=== PATIENT | male | born 1945 | race Caucasian/White ===

== ENCOUNTER → 2016-11-06 | Outpatient (CLI) | payer BC ==
[~2016-11-06] MED LIST: ALLO300T2 PO; ASPI81TA21 PO; ATEN-175 PO; ATOR-24 PO; CHOL2000 PO; CHONCAP PO; CLC6 PO; CLOP1TAB15 PO; CLTP PO; CYCL10TA6 PO; DIAZ2TAB PO; DICL50TA3 PO; DICY10CA12 PO; FERR1TAB24 PO; FINA5TAB PO; GLC500 PO; GLUC1TAB22 PO; GLUCTAB7 PO; METHPOW PO; MULT-506 PO; NAPR-1168 PO; NTRGSL/4 UT; NXM/40 PO; OXYC1TAB3 PO; POTA10CA28 PO; [UNRECOGNIZED DRUG - CODE] PO
[2016-11-06 10:06] LABS: CHOLESTEROL/HDL RATIO 3.1
== END | disposition home or self-care (01) ==
LOC: C.LAB 07:37
PROVIDERS: ATTEND Internal Medicine Cardiovascular Disease
DX: E78.00 Pure hypercholesterolemia, unspecified (principal)

== ENCOUNTER → 2017-01-23 | Outpatient (CLI) | payer BC ==
[~2017-01-23] MED LIST changes: -OXYC1TAB3 PO
[2017-01-23 10:00] LABS: BASO % 0.8 %; BASO ABS # 0.05 K/uL (0-0.2); COMPLETE YES; EOS % 2.9 %; HEMATOCRIT 36.1 % (42-52); IG% 0.2 %; LYMPH ABS # 2.51 K/uL (1.2-3.4); MEAN CORPUSCULAR HEMOGLOBIN 32.2 pg (25-34); MEAN CORPUSCULAR HGB CONC 33.5 g/dl (32-36); MEAN PLATELET VOLUME 10.2 fL (7.4-10.4); MONO % 6.9 %; NEUT % 49.2 %; PLATELET COUNT 210 K/uL (130-400); RED BLOOD COUNT 3.76 M/uL (4.7-6.1); WHITE BLOOD COUNT 6.27 K/uL (4.8-10.8)
[2017-01-23 10:08] LABS: CALCIUM 9.5 mg/dl (8.5-10.1)
[2017-01-23 10:09] LABS: ALT/SGPT 41 U/L (12-78); BLOOD UREA NITROGEN 17 mg/dl (7-18); BUN/CREATININE RATIO 18.7 (10-20); CARBON DIOXIDE 27 mmol/L (21-32); CHLORIDE 108 mmol/L (98-107); CHOLESTEROL 127 mg/dl (0-200); CREATININE 0.91 mg/dl (0.60-1.40); GLUCOSE 111 mg/dl (70-99); POTASSIUM 3.9 mmol/L (3.5-5.1); SODIUM 144 mmol/L (136-145); TRIGLYCERIDES 69 mg/dl (0-150); URIC ACID 4.4 mg/dl (2.6-7.2); VERY LOW DENSITY LIPOPROT CALC 14 mg/dl
[2017-01-23 10:16] LABS: ALB/GLOB RATIO 1.2 (0.9-2); ALKALINE PHOSPHATASE 62 U/L (45-117); AST/SGOT 24 U/L (15-37); CHOLESTEROL/HDL RATIO 2.4; HDL CHOLESTEROL 53 mg/dl; LDL CHOLESTEROL CALCULATED 60 mg/dl; PHOSPHORUS 2.6 mg/dl (2.5-4.9)
[2017-01-23 11:20] LABS: ESTIMATED AVERAGE GLUCOSE 134 mg/dl; HA1C FLAG Normal (Normal)
[2017-01-26 11:29] LABS: C-REACTIVE PROT HIGHSEN 0.6 MG/L
--- NOTE | 2017-01-29 08:44 | CODING QUERY MEDICAL NECESSITY ---
CQSUPPORTING DIAGNOSIS NEEDED A supporting diagnosis is required for the test/procedure performed on this patient in order for us to be reimbursed by the patient's insurance. Please provide a supporting diagnosis for the following test/procedure listed below next to the test name along with your signature. *If there is no additional diagnosis for this patient that would support the following test/procedure please document that below next to the test/procedure. Test(s)/Procedure(s) that require a supporting diagnosis: DOS 01/23/17 VITAMIN B12 VITAMIN D C-REACTIVE PROTEIN HIGH SENSITIVITY Provider Signature: Date: Thank you Viviana Mcknight Health Information Management Once completed, please kindly fax back to [phone] For questions please call [phone]
== END | disposition home or self-care (01) ==
LOC: C.LAB 06:53
PROVIDERS: ATTEND Family Medicine
DX: E11.9 Type 2 diabetes mellitus without complications (principal); D51.9 Vitamin B12 deficiency anemia, unspecified; E55.9 Vitamin D deficiency, unspecified; E78.2 Mixed hyperlipidemia

== ENCOUNTER → 2017-05-15 | Outpatient (CLI) | payer BC ==
[2017-05-15 09:58] LABS: CHOLESTEROL/HDL RATIO 2.7
== END | disposition home or self-care (01) ==
LOC: C.LAB 08:11
PROVIDERS: ATTEND Internal Medicine Cardiovascular Disease
DX: I25.10 Atherosclerotic heart disease of native coronary artery without angina pectoris (principal)

== ENCOUNTER 2017-09-01 05:26 | Inpatient (IN) | payer BC, OTHER ==
[2017-08-03 12:21] VITALS: BMI 33.0
--- NOTE | 2017-08-03 12:54 | PAT Medication Instructions ---
Service Date Aug 03, 2017. Current Home Medication List Allopurinol (Zyloprim), 300 MG PO NOON Aspirin Enteric Coated (Ecotrin Or Generic), 81 MG PO NOON Atenolol (Tenormin), 100 MG PO DAILY AT LUNCH Atorvastatin (Lipitor), 40 MG PO HS Calcium Carbonate-Vitamin D (Calcium + D), 1 TAB PO NOON Cholecalciferol (Vitamin D3), 2,000 INTER.UNIT PO DAILY AT LUNCH Clopidogrel (Plavix), 75 MG PO QAM Colchicine (Colcrys), 1 TAB PO DAILY PRN for GOUT Cyclobenzaprine Hcl (Flexeril), 10 MG PO UD PRN for spasms Diazepam (Valium), 2 MG PO QID PRN for dizziness/vertigo Diclofenac (Voltaren), 50 MG PO UD PRN for Pain Dicyclomine Hcl (Dicyclomine Hcl), 1 CAP PO TID PRN for SPASTIC COLON Esomeprazole Magnesium (Nexium), 40 MG PO QPM Ferrous Sulfate (Kp Ferrous Sulfate), 1 TAB PO 3XWEEK Finasteride (Proscar), 5 MG PO QAM Vpgaajlenit-Vzqfryzotod-Kox C- (Glucosamine Chondroitin), 1 TAB PO QAM Metformin Hcl (Glucophage), 500 MG PO NOON/PM Methylcellulose (Laxative) (Citrucel Fiber Laxative), 1 DOSE PO QAM Multivitamin (Multivitamin), 1 TAB PO QAM Naproxen Ds (Naprosyn Ds), 550 MG PO DAILY PRN for Pain Nitroglycerin (Nitrostat), 0.4 MG UT PRN Potassium Chloride (Micro-K Ext Rel), 10 MEQ PO QAM Valsartan/Hctz (Diovan Hct 160MG/25MG), 1 TAB PO QAM Medication Instructions For Your Scheduled Surgery - Continue as directed: Nitroglycerin (Nitrostat), 0.4 MG UT PRN - Hold the following medications 2 weeks prior to surgery: Ctkirnpldwc-Kxjlqagxkia-Rav C- (Glucosamine Chondroitin), 1 TAB PO QAM - Hold the following medications per Cardiology instructions: Clopidogrel (Plavix), 75 MG PO QAM - Hold the following medications 48 hours prior to surgery: Metformin Hcl (Glucophage), 500 MG PO NOON/PM - Hold the following medications the morning of surgery: Potassium Chloride (Micro-K Ext Rel), 10 MEQ PO QAM Valsartan/Hctz (Diovan Hct 160MG/25MG), 1 TAB PO QAM Cyclobenzaprine Hcl (Flexeril), 10 MG PO UD PRN for spasms Multivitamin (Multivitamin), 1 TAB PO QAM Methylcellulose (Laxative) (Citrucel Fiber Laxative), 1 DOSE PO QAM Calcium Carbonate-Vitamin D (Calcium + D), 1 TAB PO NOON Cholecalciferol (Vitamin D3), 2,000 INTER.UNIT PO DAILY AT LUNCH Ferrous Sulfate (Kp Ferrous Sulfate), 1 TAB PO 3XWEEK Diclofenac (Voltaren), 50 MG PO UD PRN for Pain (otherwise okay to continue per surgeon) Naproxen Ds (Naprosyn Ds), 550 MG PO DAILY PRN for Pain (otherwise okay to continue per surgeon) Dicyclomine Hcl (Dicyclomine Hcl), 1 CAP PO TID PRN for SPASTIC COLON - Take the following medications the morning of surgery with a sip of water OTHERWISE NOTHING TO EAT OR DRINK AFTER MIDNIGHT: Colchicine (Colcrys), 1 TAB PO DAILY PRN for GOUT Finasteride (Proscar), 5 MG PO QAM Diazepam (Valium), 2 MG PO QID PRN for dizziness/vertigo Aspirin Enteric Coated (Ecotrin Or Generic), 81 MG PO NOON (time permitting) Atenolol (Tenormin), 100 MG PO DAILY AT LUNCH (time permitting) Allopurinol (Zyloprim), 300 MG PO NOON - Take the following medications as scheduled the night before surgery: Atorvastatin (Lipitor), 40 MG PO HS Diazepam (Valium), 2 MG PO QID PRN for dizziness/vertigo Cyclobenzaprine Hcl (Flexeril), 10 MG PO UD PRN for spasms Esomeprazole Magnesium (Nexium), 40 MG PO QPM Dicyclomine Hcl (Dicyclomine Hcl), 1 CAP PO TID PRN for SPASTIC COLON If you have any questions please call us at [phone] or [phone] or [phone]
[2017-08-03 13:37] LABS: BASO % 0.6 %; BASO ABS # 0.04 K/uL (0-0.2); EOS % 2.3 %; EOS ABS # 0.15 K/uL (0-0.5); HEMATOCRIT 35.5 % (42-52); HEMOGLOBIN 12.2 g/dL (14.0-18.0); IG# 0.03 K/uL (0.00-0.02); LYMPH % 37.2 %; LYMPH ABS # 2.41 K/uL (1.2-3.4); MEAN CELL VOLUME 94.4 fL (80-100); MEAN CORPUSCULAR HEMOGLOBIN 32.4 pg (25-34); MEAN CORPUSCULAR HGB CONC 34.4 g/dl (32-36); MONO % 8.5 %; MONO ABS # 0.55 K/uL (0.11-0.59); NEUT % 50.9 %; NEUT ABS # 3.29 K/uL (1.4-6.5); PLATELET COUNT 199 K/uL (130-400); RED CELL DISTRIBUTION WIDTH SD 44.7 fL (36.4-46.3); WHITE BLOOD COUNT 6.47 K/uL (4.8-10.8)
--- NOTE | 2017-08-03 13:38 | DIAGNOSTIC IMAGING REPORT ---
CHEST 2 VIEWS ROUTINE CLINICAL HISTORY: 72 years-old Male presenting with preoperative assessment. TECHNIQUE: PA and lateral views of the chest were obtained. COMPARISON: 03/20/2016. FINDINGS: Atherosclerosis of aortic arch. Coronary artery calcification versus coronary stents noted. Cardiac silhouette normal in size. Lungs and pleural spaces clear. Degenerative changes of the thoracic spine. Upper abdomen normal. IMPRESSION: 1. No acute cardiopulmonary disease. Electronically signed by: Reese Sanford M.D. 08/03/2017 1:37 PM Dictated Date/Time: 08/03/2017 1:36 PM
[2017-08-03 13:49] LABS: PTT PATIENT 24.3 SECONDS (21.0-31.0)
[2017-08-03 14:08] LABS: HEMOGLOBIN A1C 7.1 % (4.5-5.6)
[2017-08-03 14:22] LABS: ALBUMIN 4.1 gm/dl (3.4-5.0); CALCIUM 9.4 mg/dl (8.5-10.1); CREATININE 1.03 mg/dl (0.60-1.40); POTASSIUM 4.2 mmol/L (3.5-5.1)
--- NOTE | 2017-08-04 09:08 | HISTORY & PHYSICAL EXAMINATION ---
DATE OF ADMISSION: 09/01/2017 CHIEF COMPLAINT: Right knee pain. HISTORY OF PRESENT ILLNESS: Mr. Capellan is a 72-year-old male with a multiple year history of right knee pain. He rates his pain an 03/26. He has pain with his daily activities. He has limited standing and walking tolerance. Pain is worse with weightbearing. The patient has tried bracing, injections, topicals and NSAIDs over the years without relief. He has failed conservative treatment and is scheduled for right knee replacement. PAST MEDICAL HISTORY: Heart disease with stent placement in 2003, diabetes with an A1c of 6.1, hypertension, sleep apnea, gout, acid reflux. He denies history of DVT. PAST SURGICAL HISTORY: Bilateral knee arthroscopy, right rotator cuff repair. SOCIAL HISTORY: The patient drinks 6 drinks per week on average. He denies tobacco use. He lives in a 2-story home. He is and retired. FAMILY HISTORY: Negative for DVT. MEDICATIONS: Lipitor 40 mg daily, potassium chloride 10 mEq 2 capsules daily, Diovan HCTZ 160/25 mg, Plavix 75 mg, atenolol 100 mg, nitroglycerin 0.4 mg p.r.n., metformin 500 mg b.i.d., Nexium 40 mg daily, Citrucel, glucosamine chondroitin, aspirin 81 mg, finasteride 5 mg daily, vitamin D3 2000 units daily, calcium 600 plus D, allopurinol 300 mg, naproxen sodium 550 mg b.i.d., ____ 0.6 mg daily, Diclofenac 50 mg b.i.d. p.r.n., cyclobenzaprine 10 mg 3 times daily p.r.n., dicyclomine 10 mg 3 times daily p.r.n., Mobic 15 mg p.r.n. ALLERGIES: None. REVIEW OF SYSTEMS: See HPI. Ten other systems reviewed, all negative. PHYSICAL EXAMINATION: VITAL SIGNS: Height 5 foot 11, weight 225 pounds. GENERAL: This is a well-developed, well-nourished male who is alert and oriented x3. Mood and affect are appropriate. HEAD, EYES, EARS, NOSE, AND THROAT: Normocephalic, atraumatic. Mucous membranes are moist and intact. NECK: Supple without lymphadenopathy. HEART: Regular rate and rhythm without murmurs, rubs or gallops. LUNGS: Clear to auscultation without wheezes or rhonchi. ABDOMEN: Soft and nontender. Bowel sounds are equal and active. EXTREMITIES: No ecchymosis, redness or warmth. He has moderate effusion. Neutral alignment. Range of motion is from 3-115 degrees with +1 laxity. He is neurovascularly intact with +5/5 strength. X-RAY EXAMINATION: AP and lateral views show joint space narrowing and osteophyte formation, especially medial compartment. He likely has a history of possible mid shaft tibial fracture. IMPRESSION: Degenerative joint disease, right knee. PLAN: The patient will be admitted for a right total knee arthroplasty with Dr. Ivy. We will plan on aspirin for DVT prophylaxis along with resuming his Plavix. He will use [facility] for home physical therapy upon discharge.
[2017-09-01] VITALS (8 sets, daily range): BP systolic 112–147; BP diastolic 61–87; PULSE 57–68; TEMP 36.4–37.2; O2SAT 95–98; Ht 180.3 cm; Wt 107.4 kg
[~2017-09-01] VITALS: Ht 180.3 cm; Wt 107.4 kg
[~2017-09-01 05:26] MED LIST changes: +CALC600T9 PO; -CHONCAP PO; -CLTP PO; +FERR1TAB13 PO; -FERR1TAB24 PO; +GLC/500 PO; -GLC500 PO; -GLUC1TAB22 PO; -METHPOW PO; +METHPOW7 PO; +VALS160T60 PO; -[UNRECOGNIZED DRUG - CODE] PO
[2017-09-01] MEDS ORDERED: LACTATED RINGER'S 1000ML 500 ML IV SCH (06:00)
[2017-09-01] MEDS ORDERED: DEXAMETHASONE 4 MG TAB PO SCH (06:00)
[2017-09-01] MEDS ORDERED: ACETAMINOPHEN 500 MG TAB PO SCH (06:00)
[2017-09-01] MEDS ORDERED: CEFAZOLIN 2000MG IV PUSH 10 ML IV SCH (06:00)
[2017-09-01] MEDS ORDERED: LACTATED RINGER'S 1000ML IV SCH (06:00)
[2017-09-01] MEDS ORDERED: CeleBREX 200 MG CAP PO SCH (06:00)
[2017-09-01] MEDS ORDERED: LACTATED RINGER'S 1000ML 1,000 ML IV SCH (06:00)
[2017-09-01] MEDS ORDERED: GABAPENTIN 300 MG CAP PO SCH (06:00)
[2017-09-01] MEDS ORDERED: METOCLOPRAMIDE HCL 10 MG TAB PO SCH (06:00)
[2017-09-01] MEDS ORDERED: FAMOTIDINE 20 MG TAB PO SCH (06:00)
[2017-09-01] MEDS ORDERED: ROPIVACAINE 5MG/ML 30 ML 150 MG, BUPIVACAINE 0.5% MPF INJ 30 ML, EpINEphrine HCL INJ 0.... INFIL SCH ×8 (06:00)
[2017-09-01] MEDS ORDERED: BUPIVACAINE 0.25% 30 ML VIAL ONE (06:20)
[2017-09-01] MEDS ORDERED: BUPIVACAINE 0.5 % 5 MG/1 ML PF 10ML VIAL ONE (06:20)
[2017-09-01] MEDS ORDERED: MIDAZOLAM HCL 1 MG/ML 2ML VIAL ONE ×3 (06:48→07:30)
[2017-09-01] MEDS ORDERED: FENTANYL CITRATE INJ 50 MCG/1 ML 2 ML VIAL ONE (06:49)
[2017-09-01] MEDS ORDERED: PROPOFOL IV EMULSION 10 MG/ML 20 ML VIAL IV ONE (06:50)
[2017-09-01] MEDS ORDERED: ONDANSETRON INJ 2 MG/ML 2 ML VIAL ONE (06:50)
[2017-09-01] MEDS ORDERED: LIDOCAINE HCL 2% 2 ML VIAL (20MG/ML) ONE (06:50)
[2017-09-01] MEDS ORDERED: POVIDONE-IODINE OP SOLN 30 ML BTL ONE (06:55)
[2017-09-01] MEDS ORDERED: BACITRACIN 50000 UNIT VIAL ONE (06:55)
[2017-09-01] MEDS ORDERED: ORTHO JOINT ANESTHETIC ONE (06:55)
--- NOTE | 2017-09-01 07:14 | History & Physical Bridge Note ---
H&P Re-Evaluation Bridge Note: I have examined the patient, reviewed the History & Physical and in the interval since the performance of the History & Physical I have noted the following changes of clinical significance: No changes noted
[2017-09-01] MEDS ORDERED: KETOROLAC TROMETHAMINE 30 MG/ML VIAL IV. PRN (07:45)
[2017-09-01] MEDS ORDERED: ONDANSETRON INJ 2 MG/ML 2 ML VIAL IV PRN ×2 (07:45→09:15)
[2017-09-01] MEDS ORDERED: ATROPINE SULFATE 0.1 MG/ML 5ML SYR IV PRN (07:45)
[2017-09-01] MEDS ORDERED: HYDROmorphone INJ 2 MG/ML SYR/VIAL IV PRN (07:45)
[2017-09-01] MEDS ORDERED: PHENYLEPHRINE 100MCG/ML 5ML SYR IV PRN (07:45)
[2017-09-01] MEDS ORDERED: EpHEDrine SULFATE INJ 50 MG/ML AMP IV PRN (07:45)
--- NOTE | 2017-09-01 08:34 | [facility] Operative Report ---
Operative Report Operative Date Sep 01, 2017. Pre-Operative Diagnosis Right Knee Degenerative Joint Disease Post-Operative Diagnosis Right Knee Degenerative Joint Disease Procedure(s) Performed Right Total Knee Arthroplasty, Cemented size 6 femur 5 tibia 11 Deepti 35 oval patella journey to patient-matched total knee arthroplasty Surgeon Dr. Ivy Dinkey Operator Surgeon(s) Richard Mtz PA-C Estimated Blood Loss 5 mL Findings Patient presents with a planes ongoing pain with varus alignment subchondral cystic formations also osteophytes marginal osteophytes sclerosis failed attempts at conservative management including physical therapy anti- inflammatories relative rest activity modification injections Specimens A: Right Knee Bone and Tissue Complication(s) None Disposition Recovery Room / PACU Indications Patient presents of 4 total knee arthroplasty excision milligrams subchondral sclerosis cystic changes marginal osteophytes varus alignment fsqi-[id number] changes Nourse wants to conservative therapy including injections anti- inflammatories relative rest activity modification viscus of rotations presents for total knee arthroplasty Description of Procedure After proper prepping and draping of the Right lower extremity anterior midline incision was made over the region of the extensor extensor mechanism after meticulous hemostasis was obtained and maintained in subcutaneous tissues a medial parapatellar incision was made The patella was subluxed lateralward the medial lateral gutter were cleaned from any hypertrophic synovitis and scar tissue of the distal femoral block was placed and the distal femoral osteotomy cut was made subsequently the chamfers anterior and posterior osteotomy cuts were made utilizing the 4-in-1 block the tibia was subsequently subluxed anteriorward medial and ateral meniscal remnants were excised in their entirety remnants of the anterior and posterior cruciate ligaments were excised in their entirety excellent exposure of the proximal tibia was obtained the tibial osteotomy guide was placed on the proximal tibial osteotomy cut was made once again the knee was irrigated with copious amounts of sterile saline solution the patella was subsequently everted lateralward thickened scar tissue around the patella was removed the patella was subsequently cut utilizing a freehand technique and was drilled prepared for final preparation and placement of patella socially flexion-extension gaps were checked and the equal and symmetric trials were placed to the appropriate femoral and tibial trials with poly-spacer being placed for equal flexion and extension gaps and full range of motion including extension to 0 and flexion to 140 the trial components after having been taken to recovery range of motion was subsequently removed meticulous hemostasis was obtained and maintained subsequently a knee block injection of joint cocktail including ropivacaine 0.5% 150 mg. Bupivacaine 0.5 % epinephrine 1-200,030 mL's toradol 30 mg dexamethasone 4 mg ketamine 10 mg clonidine 100 micrograms normal saline solution 30 mg was infiltrated into the soft tissues of the posterior knee medial lateral gutters and periosteal synovium special attention was paid to protect neurovascular structures at all times subsequently trial components having been removed the knee was irrigated with sterile saline solution. debris was removed the proximal tibia was subsequently prepared and was made ready for the placement of the tibial component tibial component was also cemented and tamped into position the femoral component was subsequently placed and cemented in the position the patellar component was subsequently cemented in position because hemostasis once again obtained and maintained wound having been thoroughly irrigated with debridement and debridement lavage was performed as well as a medial parapatellar incision closed with #1 Vicryl in interrupted fashion subcutaneous was closed with #2 Vicryl skin was closed with skin clips. PA-C was necessary for prepping and drapping as well as wound closure of deep fascia Sub cutaneous tissue and skin and was necessary for the case. A sterile compressive dressing was placed patient was taken to recovery in stable condition of report dictated by Biju I attest to the content of the Intraoperative Record and any orders documented therein. Any exceptions are noted below. I attest to the content of the Intraoperative Record and any orders documented therein. Any exceptions are noted below.
[2017-09-01] MEDS ORDERED: ALUMINUM/MAGNESIUM/SIMETH (MAALOX MAX) 30 ML UDC PO PRN (09:15)
[2017-09-01] MEDS ORDERED: CYCLOBENZAPRINE HCL 10 MG TAB PO PRN (09:15)
[2017-09-01] MEDS ORDERED: ZOLPIDEM TARTRATE 5 MG TAB PO PRN (09:15)
[2017-09-01] MEDS ORDERED: COLCHICINE 0.6 MG TAB PO PRN (09:15)
[2017-09-01] MEDS ORDERED: DICYCLOMINE HCL 10 MG CAP PO PRN (09:15)
[2017-09-01] MEDS ORDERED: OXYCODONE HCL IR 5 MG TAB (IMMEDIATE RELEASE) PO PRN (09:15)
[2017-09-01] MEDS ORDERED: BISACODYL 10 MG SUPP PR PRN (09:15)
[2017-09-01] MEDS ORDERED: DIAZEPAM 2MG TAB PO PRN (09:15)
[2017-09-01] MEDS ORDERED: MAGNESIUM HYDROXIDE SUSP 30 ML UDC PO PRN (09:15)
[2017-09-01] MEDS ORDERED: SOD PHOSPHATE/SOD BIPHOSPHATE ENEMA 132 ML BTL PR PRN (09:15)
[2017-09-01] MEDS ORDERED: CEFAZOLIN IV 2,000 MG in DEXTROSE 5% 50ML 50 ML IV SCH (09:15)
[2017-09-01] MEDS ORDERED: NITROGLYCERIN 0.4 MG SL PER TAB CHARGE UT PRN (09:15)
--- NOTE | 2017-09-01 09:29 | DIAGNOSTIC IMAGING REPORT ---
R KNEE 1 OR 2 VIEWS ROUTINE CLINICAL HISTORY: Postoperative evaluation COMPARISON: Right knee radiographs June 30, 2016. FINDINGS: Alignment of the total right knee arthroplasty is anatomic. The fracture or unexpected radiopaque foreign body. Surgical drains are in place. IMPRESSION: Expected findings following total right knee arthroplasty. Electronically signed by: Jose Carlos Arboleda M.D. 09/01/2017 9:28 AM Dictated Date/Time: 09/01/2017 9:27 AM
--- NOTE | 2017-09-01 09:46 | Pharmacy Progress Note ---
Glycemic Control Intl Consult Date of Service Sep 01, 2017. Scope Glycemic Pharmacist consulted on 09/01/17 for glycemic control and to write orders per [facility] inpatient glycemic control protocol Objective Weight (Kilograms): 107.40 Accuchecks BSG (last 24hrs): Test 09/01/17 05:49 09/01/17 09:10 Bedside Glucose 124 mg/dl (70-99) 140 mg/dl (70-99) HbA1c Item Value Date Time Hemoglobin A1c 7.1 % H 08/03/17 1300 Estimated Average Glucose 157 mg/dl 08/03/17 1300 Recent Pertinent Medications Outpatient Anti-diabetic Regimen: * metformin 500 mg PO BIDM Risk Factors for Insulin Resistance: * Steroids * Recent Surgery * Diet Assessment & Plan ASSESSMENT: * 72 yo T2 diabetic M, s/p R knee surgery - POD #0 * A1c 7.1% indicative of good glycemic control based on age/comorbidities * Pt is maintained on metformin alone as an outpatient * Oral agents are not recommended for inpatient use d/t drug interactions, changing PO intake, and difficulty titrating for acute hyper/hypoglycemia. ADA recommends re-initiating outpatient oral agents 1-2 days prior to discharge if/ when appropriate if they were held on admission. * Will hold metformin for now and utilize SQ basal bolus insulin regimen which is the recommended regimen for inpatient glycemic control. * Will initiate weight based insulin dosing for insulin jennifer patient and titrate based on BSG trends. * Expect steroid-induced hyperglycemic from preop dexamethasone X 1 so plan will be aggressive up front then loosened each day. PLAN FOR INPATIENT GLYCEMIC CONTROL: * Hold metformin * Basal insulin with LANTUS 30 units SQ X 1 - further dosing may be necessary tomorrow based on BSG trend * Correctional Insulin with NOVOLOG per scale ACHS + 00,04 X 24 hours post-op * Goal Range: Low 110 mg/dL - High 140 mg/dL * Correction Factor: 20 mg/dL/unit * Nutritional / Prandial insulin per carb ratio of 1 unit per 6 grams CHO consumed * Please note that the plan above was derived based on current level of insulin resistance and hospital stress. These recommendations are appropriate for inpatient admission only. Plan of care upon discharge will need to be reassessed to avoid potential outpatient hypo/hyperglycemia. Thank you.
--- NOTE | 2017-09-01 10:23 | Anesthesiology Progress Note ---
Anesthesia Post Op Note Date & Time Sep 01, 2017 at 10:23 Vital Signs Pain Intensity: 0 Vital Signs Past 12 Hours Date Time Temp Pulse Resp B/P (MAP) Pulse Ox O2 Delivery O2 Flow Rate FiO2 09/01/17 10:14 64 12 09/01/17 10:14 63 12 96 09/01/17 10:11 114/64 09/01/17 10:09 66 15 09/01/17 10:09 66 15 93 09/01/17 10:06 121/53 09/01/17 10:04 70 15 09/01/17 10:04 70 15 95 09/01/17 10:02 117/55 09/01/17 09:59 62 15 97 09/01/17 09:59 63 15 09/01/17 09:58 36.6 61 16 122/45 (67) 96 Nasal Cannula 2 09/01/17 09:56 122/45 09/01/17 09:54 64 17 09/01/17 09:54 64 17 97 09/01/17 09:53 62 14 96 09/01/17 09:53 62 14 09/01/17 09:51 120/61 09/01/17 09:48 63 21 09/01/17 09:48 64 21 96 09/01/17 09:46 113/64 09/01/17 09:43 63 15 09/01/17 09:43 62 15 95 09/01/17 09:42 63 14 09/01/17 09:42 64 14 95 09/01/17 09:41 120/66 09/01/17 09:37 66 12 09/01/17 09:37 65 12 93 09/01/17 09:36 120/67 09/01/17 09:32 64 16 09/01/17 09:32 64 16 95 09/01/17 09:31 114/62 09/01/17 09:27 64 14 09/01/17 09:27 65 14 95 09/01/17 09:26 96/57 09/01/17 09:22 61 14 09/01/17 09:22 61 14 95 09/01/17 09:21 101/54 09/01/17 09:20 62 17 09/01/17 09:20 63 17 94 09/01/17 09:16 110/54 09/01/17 09:15 66 15 94 09/01/17 09:15 67 15 09/01/17 09:11 104/58 09/01/17 09:10 65 14 09/01/17 09:10 65 14 95 09/01/17 09:06 111/53 09/01/17 09:05 36.2 69 15 111/53 (69) 93 Nasal Cannula 2 09/01/17 09:05 71 14 93 09/01/17 09:05 72 14 09/01/17 05:45 36.9 68 20 145/87 98 Room Air Notes Mental Status: alert / awake / arousable, participated in evaluation Pt Amnestic to Procedure: Yes Nausea / Vomiting: adequately controlled Pain: adequately controlled Airway Patency, RR, SpO2: stable & adequate BP & HR: stable & adequate Hydration State: stable & adequate Anesthetic Complications: no major complications apparent
[2017-09-01] MEDS ORDERED: PHARMACY GLYCEMIC MGMT CONSULT PRN (10:48)
[2017-09-01] MEDS ORDERED: GLUCAGON FOR INJ 1 MG VIAL SQ PRN (11:00)
[2017-09-01] MEDS ORDERED: DEXTROSE 50% 50 ML SYR IV PRN (11:00)
[2017-09-01] MEDS ORDERED: GLUCOSE 40% GEL 15 GM TUBE PO PRN (11:00)
[2017-09-01] MEDS ORDERED: GLUCOSE 10 TABS/TUBE PO PRN (11:00)
[2017-09-01] MEDS: SODIUM CHLORIDE 0.9% 1000ML 1,000 ML IV SCH ×2 (11:16→20:50)
[2017-09-01] MEDS ORDERED: LANTUS PER UNIT CHARGE SQ SCH (12:00)
[2017-09-01] MEDS: FERROUS GLUCONATE 324 MG TAB PO SCH ×2 (13:14→19:36)
[2017-09-01] MEDS: CALCIUM 600MG + VIT D 400 IU TAB PO SCH (13:14)
[2017-09-01] MEDS: ACETAMINOPHEN 500 MG TAB PO SCH ×2 (13:15→21:34)
[2017-09-01] MEDS: CHOLECALCIFEROL 1000 INTER.UNIT TAB PO SCH (13:15)
[2017-09-01] MEDS: INSULIN ASPART 100 UNITS/ML 3 ML PEN SC SCH ×3 (13:22→20:56)
[2017-09-01] MEDS ORDERED: GLC850 PO (15:07)
[2017-09-01] MEDS ORDERED: NRN100 PO (15:07)
[2017-09-01] MEDS ORDERED: HydrALAZINE HCL 20 MG/ML VIAL IV. PRN (15:15)
--- NOTE | 2017-09-01 15:21 | Medical Consult ---
Consultation Date of Consultation: Sep 01, 2017. Attending Physician: Momo Ivy D.O. Reason for Consultation: Medical management History of Present Illness This is a 72 y/o male with a history of CAD s/p stents x 2 (2003/2004), HTN, HLD , DM II, BPH, gout, and GERD who presents s/p right TKA with Dr. Ivy on 09/01 for medical management. The patient reports feeling well postoperatively. He states that he is still numb/tingly in his lower extremities, R>L, but that feeling is returning. He denies any pain currently. He is eating and passing gas without issue. He has not yet urinated or had a bowel movement postoperatively. The patient denies fevers, chills, sweats, chest pain, palpitations, claudication, cough, wheezing, shortness of breath, nausea, vomiting, abdominal pain, dysuria, hematuria, urinary retention, paralysis, weakness. Past Medical/Surgical History CAD s/p stents (first in 2003, second 6 months later in 2004) HTN HLD DM II BPH Gout GERD OA Family History Coronary artery disease MOTHER SISTER Lung cancer FATHER Myocardial infarction SISTER Social History Smoking Status: Former Smoker (quit in 1969) Smokeless Tobacco Use: No Alcohol Use: socially Drug Use: none Marital Status: Housing Status: lives with family ( and son) Occupation Status: retired Allergies Coded Allergies: No Known Allergies (Verified , 09/01/17) Current Inpatient Medications Current Inpatient Medications Medications (Trade) Dose Ordered Sig/Blanche Route Start Time Stop Time Status Last Admin Dose Admin Sodium Chloride 1,000 ml @ 100 mls/hr Q10H IV 09/01/17 11:30 09/02/17 11:29 09/01/17 11:16 100 MLS/HR Oxycodone HCl (Roxicodone Immediate Rel Tab) 1 TABLET FOR PAIN RATING... Q4H PRN PO 09/01/17 09:15 09/15/17 09:14 Acetaminophen (Tylenol Tab) 1,000 mg Q8 PO 09/01/17 14:00 10/01/17 13:59 09/01/17 13:15 1,000 MG Magnesium Hydroxide (Milk Of Magnesia Susp) 30 ml Q6H PRN PO 09/01/17 09:15 10/01/17 09:14 Bisacodyl (Dulcolax Supp) 10 mg DAILY PRN SD 09/01/17 09:15 10/01/17 09:14 Sodium Biphosphate/ Sodium Phosphate (Fleet Enema) 132 ml DAILY PRN SD 09/01/17 09:15 10/01/17 09:14 Senna (Senokot Tab) 17.2 mg HS PO 09/01/17 21:00 10/01/17 20:59 Docusate Sodium (coLACE CAP) 100 mg BID PO 09/01/17 21:00 10/01/17 20:59 Diphenhydramine HCl (Benadryl Cap) 25 mg Q8H PRN PO 09/01/17 09:15 10/01/17 09:14 Al Hydrox/Mg Hydrox/Simethicone (Maalox Max Susp) 15 ml Q4H PRN PO 09/01/17 09:15 10/01/17 09:14 Zolpidem Tartrate (Ambien Tab) 5 mg HSZ PRN PO 09/01/17 09:15 10/01/17 09:14 Multivitamins (Multivitamin Tab) 1 tab QAM PO 09/02/17 09:00 10/02/17 08:59 Ondansetron HCl (Zofran Inj) 4 mg Q6H PRN IV 09/01/17 09:15 10/01/17 09:14 Ferrous Gluconate (Ferrous Gluconate Tab) 324 mg TIDM PO 09/01/17 12:30 10/01/17 12:29 09/01/17 13:14 324 MG Pantoprazole Sodium (Protonix Tab) 40 mg QAM PO 09/02/17 09:00 10/02/17 08:59 Tramadol HCl (Ultram Tab) 1 tablet for pain rating... Q4H PRN PO 09/01/17 09:15 10/01/17 09:14 Aspirin (Ecotrin Tab) 81 mg DAILY PO 09/02/17 09:00 10/02/17 08:59 Atorvastatin Calcium (Lipitor Tab) 40 mg HS PO 09/01/17 21:00 10/01/17 20:59 Clopidogrel Bisulfate (plAVix TAB) 75 mg QAM PO 09/02/17 09:00 10/02/17 08:59 Colchicine (Colchicine Tab) 0.6 mg DAILY PRN PO 09/01/17 09:15 10/01/17 09:14 Cyclobenzaprine HCl (Flexeril Tab) 10 mg DAILY PRN PO 09/01/17 09:15 10/01/17 09:14 Diazepam (Valium Tab) 2 mg QID PRN PO 09/01/17 09:15 10/01/17 09:14 Dicyclomine HCl (Bentyl Cap) 10 mg TID PRN PO 09/01/17 09:15 10/01/17 09:14 Finasteride (Proscar Tab) 5 mg QAM PO 09/02/17 09:00 10/02/17 08:59 Nitroglycerin (Nitrostat Tab) 0.4 mg UD PRN UT 09/01/17 09:15 10/01/17 09:14 Potassium Chloride (Klor-Con M10) 10 meq QAM PO 09/02/17 09:00 10/02/17 08:59 Calcium/Vitamin D (Caltrate Plus Tab) 1 tab DAILY@1200 PO 09/01/17 12:00 10/01/17 11:59 09/01/17 13:14 1 TAB Cholecalciferol (Vitamin D Tab) 2,000 inter.unit DAILY@1200 PO 09/01/17 12:00 10/01/17 11:59 09/01/17 13:15 2,000 INTER.UNIT Miscellaneous Information (Consult Glycemic Management Pharmacy) 1 ea UD PRN N/A 09/01/17 10:48 10/01/17 10:47 Insulin Aspart (novoLOG ASPART) SLIDING SCALE ACHS SC 09/01/17 12:00 10/01/17 11:59 09/01/17 13:22 5 UNITS Glucose (Glucose 40% Gel) 15-30 GRAMS 15 GRAMS... UD PRN PO 09/01/17 11:00 10/01/17 10:59 Glucose (Glucose Chew Tab) 4-8 Tablets 4 Tabl... UD PRN PO 09/01/17 11:00 10/01/17 10:59 Dextrose (Dextrose 50% 50ML Syringe) 25-50ML OF 50% DW IV FOR... UD PRN IV 09/01/17 11:00 10/01/17 10:59 Glucagon (Glucagon Inj) 1 mg UD PRN SQ 1/16/18 11:00 10/01/17 10:59 Cefazolin Sodium 2000 mg/Syringe 10 ml @ 2.5 mls/min Q8H IV 09/01/17 16:00 09/02/17 00:03 Atenolol (Tenormin Tab) 100 mg DAILY@1200 PO 09/01/17 12:00 10/01/17 11:59 Insulin Aspart (novoLOG ASPART) SLIDING SCALE 0000,0400 SC 09/02/17 00:00 10/02/17 00:00 Review of Systems See HPI for pertinent positives and negatives. All other systems reviewed and negative. Physical Exam Date Time Temp Pulse Resp B/P (MAP) Pulse Ox O2 Delivery O2 Flow Rate FiO2 09/01/17 13:31 68 16 125/85 (98) 97 Nasal Cannula 09/01/17 11:29 37.2 57 18 125/72 (89) 97 Nasal Cannula 2.0 09/01/17 10:57 66 19 136/71 (92) 96 Nasal Cannula 09/01/17 10:30 Nasal Cannula 2.0 09/01/17 10:30 Nasal Cannula 2.0 09/01/17 10:30 37.2 63 18 112/74 (87) 97 Nasal Cannula 2.0 09/01/17 10:14 64 12 09/01/17 10:14 63 12 96 09/01/17 10:11 114/64 09/01/17 10:09 66 15 09/01/17 10:09 66 15 93 09/01/17 10:06 121/53 09/01/17 10:04 70 15 09/01/17 10:04 70 15 95 09/01/17 10:02 117/55 09/01/17 09:59 62 15 97 09/01/17 09:59 63 15 09/01/17 09:58 36.6 61 16 122/45 (67) 96 Nasal Cannula 2 09/01/17 09:56 122/45 09/01/17 09:54 64 17 09/01/17 09:54 64 17 97 09/01/17 09:53 62 14 96 09/01/17 09:53 62 14 09/01/17 09:51 120/61 09/01/17 09:48 63 21 09/01/17 09:48 64 21 96 09/01/17 09:46 113/64 09/01/17 09:43 63 15 09/01/17 09:43 62 15 95 09/01/17 09:42 63 14 09/01/17 09:42 64 14 95 09/01/17 09:41 120/66 09/01/17 09:37 66 12 09/01/17 09:37 65 12 93 09/01/17 09:36 120/67 09/01/17 09:32 64 16 09/01/17 09:32 64 16 95 09/01/17 09:31 114/62 09/01/17 09:27 64 14 09/01/17 09:27 65 14 95 09/01/17 09:26 96/57 09/01/17 09:22 61 14 09/01/17 09:22 61 14 95 09/01/17 09:21 101/54 09/01/17 09:20 62 17 09/01/17 09:20 63 17 94 09/01/17 09:16 110/54 09/01/17 09:15 66 15 94 09/01/17 09:15 67 15 09/01/17 09:11 104/58 09/01/17 09:10 65 14 09/01/17 09:10 65 14 95 09/01/17 09:06 111/53 09/01/17 09:05 36.2 69 15 111/53 (69) 93 Nasal Cannula 2 09/01/17 09:05 71 14 93 09/01/17 09:05 72 14 09/01/17 05:45 36.9 68 20 145/87 98 Room Air General appearance: +Obese. Well-developed, well-nourished, no apparent distress Head: Normocephalic, atraumatic Eyes: Normal inspection, PERRL, EOMI ENT: Normal ENT inspection, hearing grossly normal, pharynx normal Neck: Supple, no JVD, trachea midline Respiratory/Chest: +2L NC. Decreased breath sounds. Lungs clear to auscultation, no respiratory distress Cardiovascular: Regular rate & rhythm, no gallop, no murmur Abdomen/GI: Normal bowel sounds, non-tender, soft Extremities/Musculoskeletal: +RLE wrapped in sania bandage, drain in place. Decreased sensation in RLE compared to LLE. No calf tenderness, no pedal edema Neurological/Psych: Alert, normal mood/affect, oriented x 3 Skin: Normal color, warm/dry, no rash Laboratory Results Last 24 Hours Test 09/01/17 05:49 09/01/17 09:10 09/01/17 12:01 Bedside Glucose 124 mg/dl 140 mg/dl 146 mg/dl Assessment & Plan 72 y/o male with a history of CAD s/p stents x 2 (), HTN, HLD, DM II, BPH, gout, and GERD who presents s/p right TKA with Dr. Ivy on 09/01 for medical management. S/p R TKA--POD #0 -Pain management, DVT prophylaxis, and PT/OT as per primary team -ASA 81 mg PO qd, Plavix 75 mg PO qd -No pain, AVSS -Continue gabapentin 100 mg PO hs CAD s/p stents, HTN, HLD--stable -Continue ASA and Plavix as above -Continue atenolol 100 mg PO qd, hold if SBP <100 or HR <60. Continue Lipitor 40 mg PO qd -Hold Diovan for now until renal function checked/stable and off IVF -Cover with hydralazine 10 mg IV q6h prn SBP >180 DM II--last HgbA1c 7.1 on 08/03/17 -Hold metformin -Insulin sliding scale -Check BSGs q ac and qhs BPH -Continue Proscar 5 mg PO qd Gout -Continue allopurinol 300 mg PO noon GERD -Nexium converted to Protonix Code Status -Level I, FULL RESUSCITATION STATUS Thank you for this consultation. We will continue to follow. Reviewed: Pt Seen/Exam by Me History Physician [employer] Supervision Note: I interviewed and examined the patient. Discussed with JEMIMA Ramsay and agree with findings and plan as documented in the note. Any exceptions or clarifications are listed here: Pt post-op R TKA, doing very well, no CP or SOB, no N/V, cayetano po Vitals reviewed RRR no mgr CTAB no wcr Abd +BS soft NT ND Ext Rt LE in SANIA wrap not removed no calf tenderness, no leg edema 72 yo male with a h/o CAD s/p stents x 2 (), HTN, HLD, DM II, BPH, gout , and GERD who presents s/p right TKA with Dr. Ivy on 09/01 for medical management. Doing very well post op -ok to give atenolol now as was held earlier in the day for mild bradycardia. His HR at home usually runs in 50s-60s -monitor for signs of ACS in perioperative period -restart losartan in AM if renal function ok -pain control -DVT proph noted to be with ASA, but remains on ASA once daily along with Plavix --> defer to Ortho if they wanted to increase ASA to bid Documented By: Odessa Brown
[2017-09-01 15:43] LABS: HEMATOCRIT 29.9 % (42-52); HEMOGLOBIN 10.4 g/dL (14.0-18.0); MEAN CELL VOLUME 92.9 fL (80-100); MEAN CORPUSCULAR HEMOGLOBIN 32.3 pg (25-34); MEAN CORPUSCULAR HGB CONC 34.8 g/dl (32-36); MEAN PLATELET VOLUME 9.6 fL (7.4-10.4); PLATELET COUNT 162 K/uL (130-400); RED CELL DISTRIBUTION WIDTH CV 12.9 % (11.5-14.5); RED CELL DISTRIBUTION WIDTH SD 43.8 fL (36.4-46.3)
[2017-09-01] MEDS: CEFAZOLIN IV 2,000 MG in SYRINGE 0 ML IV SCH (15:47)
[2017-09-01 16:04] LABS: CREATININE 1.14 mg/dl (0.60-1.40); POTASSIUM 4.2 mmol/L (3.5-5.1)
[2017-09-01] MEDS ORDERED: NURSING VERBAL MED ORDER ONE (20:45)
[2017-09-01] MEDS: DOCUSATE SODIUM 100 MG CAP PO SCH (20:51)
[2017-09-01] MEDS: SENNA 8.6 MG TAB PO SCH (20:51)
[2017-09-01] MEDS: ATORVASTATIN 40 MG TAB PO SCH (20:51)
[2017-09-01] MEDS: GABAPENTIN 100 MG CAP PO SCH (20:52)
[2017-09-01] MEDS: TRAMADOL HCL 50 MG TAB PO PRN ×2 (21:01→21:37)
[2017-09-02] VITALS (8 sets, daily range): BP systolic 109–138; BP diastolic 65–84; PULSE 53–64; TEMP 36.2–37.1; O2SAT 92–98
[2017-09-02] MEDS: CEFAZOLIN IV 2,000 MG in SYRINGE 0 ML IV SCH (00:34)
[2017-09-02] MEDS: INSULIN ASPART 100 UNITS/ML 3 ML PEN SC SCH ×6 (04:00→21:35)
[2017-09-02] MEDS: SODIUM CHLORIDE 0.9% 1000ML 1,000 ML IV SCH (06:43)
[2017-09-02] MEDS: ACETAMINOPHEN 500 MG TAB PO SCH ×3 (06:45→21:34)
[2017-09-02 07:12] LABS: HEMATOCRIT 26.1 % (42-52); HEMOGLOBIN 8.9 g/dL (14.0-18.0); MEAN CELL VOLUME 92.9 fL (80-100); MEAN CORPUSCULAR HEMOGLOBIN 31.7 pg (25-34); MEAN CORPUSCULAR HGB CONC 34.1 g/dl (32-36); PLATELET COUNT 172 K/uL (130-400); RED CELL DISTRIBUTION WIDTH CV 12.9 % (11.5-14.5); RED CELL DISTRIBUTION WIDTH SD 43.7 fL (36.4-46.3); WHITE BLOOD COUNT 10.41 K/uL (4.8-10.8)
--- NOTE | 2017-09-02 07:38 | Orthopedic Progress Note ---
Orthopedic Progress Note Date of Service Sep 02, 2017. Subjective Post OP Day: 1 Reports: feeling well, Denies: complaints Objective calves soft nontender, N/V intact, dressing C/D/I, A&O x3, toes mobile, hemovac drainage (55ml latest shift) Date Time Temp Pulse Resp B/P (MAP) Pulse Ox O2 Delivery O2 Flow Rate FiO2 09/02/17 04:12 36.6 58 16 109/65 (80) 96 Room Air 09/02/17 00:10 98 Room Air 09/01/17 23:39 37.1 59 17 114/61 (78) 95 Room Air 09/01/17 19:42 36.4 62 16 147/80 (102) 97 Room Air 09/01/17 15:43 37.0 66 17 144/81 (102) 98 Nasal Cannula 2.0 09/01/17 15:30 Room Air 09/01/17 13:31 68 16 125/85 (98) 97 Nasal Cannula 09/01/17 11:29 37.2 57 18 125/72 (89) 97 Nasal Cannula 2.0 09/01/17 10:57 66 19 136/71 (92) 96 Nasal Cannula 09/01/17 10:30 Nasal Cannula 2.0 09/01/17 10:30 Nasal Cannula 2.0 09/01/17 10:30 37.2 63 18 112/74 (87) 97 Nasal Cannula 2.0 09/01/17 10:14 64 12 09/01/17 10:14 63 12 96 09/01/17 10:11 114/64 09/01/17 10:09 66 15 09/01/17 10:09 66 15 93 09/01/17 10:06 121/53 09/01/17 10:04 70 15 09/01/17 10:04 70 15 95 09/01/17 10:02 117/55 09/01/17 09:59 62 15 97 09/01/17 09:59 63 15 09/01/17 09:58 36.6 61 16 122/45 (67) 96 Nasal Cannula 2 09/01/17 09:56 122/45 09/01/17 09:54 64 17 09/01/17 09:54 64 17 97 09/01/17 09:53 62 14 96 09/01/17 09:53 62 14 09/01/17 09:51 120/61 09/01/17 09:48 63 21 09/01/17 09:48 64 21 96 09/01/17 09:46 113/64 09/01/17 09:43 63 15 09/01/17 09:43 62 15 95 09/01/17 09:42 63 14 09/01/17 09:42 64 14 95 09/01/17 09:41 120/66 09/01/17 09:37 66 12 09/01/17 09:37 65 12 93 09/01/17 09:36 120/67 09/01/17 09:32 64 16 09/01/17 09:32 64 16 95 09/01/17 09:31 114/62 09/01/17 09:27 64 14 09/01/17 09:27 65 14 95 09/01/17 09:26 96/57 09/01/17 09:22 61 14 09/01/17 09:22 61 14 95 09/01/17 09:21 101/54 09/01/17 09:20 62 17 09/01/17 09:20 63 17 94 09/01/17 09:16 110/54 09/01/17 09:15 66 15 94 09/01/17 09:15 67 15 09/01/17 09:11 104/58 09/01/17 09:10 65 14 09/01/17 09:10 65 14 95 09/01/17 09:06 111/53 09/01/17 09:05 36.2 69 15 111/53 (69) 93 Nasal Cannula 2 09/01/17 09:05 71 14 93 09/01/17 09:05 72 14 Laboratory Results 24 Hours: Test 09/01/17 15:29 09/02/17 06:23 Hematocrit 29.9 % 26.1 % Hemoglobin 10.4 g/dL 8.9 g/dL Prothromb Time International Ratio 1.0 Prothrombin Time 11.0 SECONDS Assessment & Plan Assessment: POD 1 s/p Right TKA Plan: PT/OT Planning to dc home with [facility] Inhouse Planning Pain Management: Ultram, PO Tylenol, Oxy IR DVT Prophylaxis: TEDs, SCDs, ASA, other (Plavix) Discharge Planning Discharge Planning: home with home health
[2017-09-02 07:47] LABS: CALCIUM 8.4 mg/dl (8.5-10.1); CREATININE 1.09 mg/dl (0.60-1.40); POTASSIUM 3.8 mmol/L (3.5-5.1)
--- NOTE | 2017-09-02 08:20 | Anesthesiology Progress Note ---
Anesthesia Post Op Note Date & Time Sep 02, 2017 at 08:20 Vital Signs Pain Intensity: 0.0 Vital Signs Past 12 Hours Date Time Temp Pulse Resp B/P (MAP) Pulse Ox O2 Delivery O2 Flow Rate FiO2 09/02/17 08:15 96 Room Air 09/02/17 08:12 36.3 60 16 132/84 (100) 96 Room Air 09/02/17 04:12 36.6 58 16 109/65 (80) 96 Room Air 09/02/17 00:10 98 Room Air 09/01/17 23:39 37.1 59 17 114/61 (78) 95 Room Air Notes Mental Status: alert / awake / arousable, participated in evaluation Pt Amnestic to Procedure: Yes Nausea / Vomiting: adequately controlled Pain: adequately controlled Airway Patency, RR, SpO2: stable & adequate BP & HR: stable & adequate Hydration State: stable & adequate Neuraxial Anesthesia: sensory block resolved Anesthetic Complications: no major complications apparent
[2017-09-02] MEDS: ASPIRIN 81 MG ECTAB PO SCH (08:37)
[2017-09-02] MEDS: MULTIVITAMIN TAB PO SCH (08:37)
[2017-09-02] MEDS: FERROUS GLUCONATE 324 MG TAB PO SCH ×3 (08:37→18:46)
[2017-09-02] MEDS: DOCUSATE SODIUM 100 MG CAP PO SCH ×2 (08:37→21:34)
[2017-09-02] MEDS: CLOPIDOGREL BISULFATE 75 MG TAB PO SCH (08:38)
[2017-09-02] MEDS: POTASSIUM CHLORIDE 10 MEQ TABCR PO SCH (08:38)
[2017-09-02] MEDS: FINASTERIDE 5 MG TAB PO SCH (08:38)
[2017-09-02] MEDS: PANTOprazole SOD 40 MG TAB PO SCH (08:39)
[2017-09-02] MEDS: TRAMADOL HCL 50 MG TAB PO PRN ×3 (08:45→16:55)
--- NOTE | 2017-09-02 09:05 | Pharmacy Progress Note ---
Pharmacy Glycemic Short Note 2 Date of Service Sep 02, 2017. OUTPATIENT ANTIDIABETIC REGIMEN: * metformin 500 mg PO BIDM ASSESSMENT: * 72 yo T2 diabetic M, s/p R knee surgery - POD #1 * A1c 7.1% indicative of good glycemic control based on age/comorbidities * Goal was to maintain BSGs <150 mg/dL * BSGs have ranged 120-175 mg/dL over the past 24 hours (only one BSG above goal range) * Pt responded very well to basal/bolus regimen * Moving forward - add back orals and loosen regimen each day closer to discharge PLAN FOR INPATIENT GLYCEMIC CONTROL: * Restart metformin 500 mg PO BIDM * No further basal insulin doses necessary * Correctional Insulin with NOVOLOG per scale ACHS * Goal Range: Low 110 mg/dL - High 140 mg/dL * Correction Factor: 40 mg/dL/unit * Nutritional / Prandial insulin per carb ratio of 1 unit per 15 grams CHO consumed PLAN FOR DISCHARGE: * Resume metformin - consider titrating up if tolerated * Please note that the plan above was derived based on current level of insulin resistance and hospital stress. These recommendations are appropriate for inpatient admission only. Plan of care upon discharge will need to be reassessed to avoid potential outpatient hypo/hyperglycemia. Thank you.
--- NOTE | 2017-09-02 10:10 | Discharge Instructions ---
Discharge Instructions Date of Service Sep 02, 2017. Admission Reason for Admission: Right Knee Osteoarthritis Discharge Discharge Diagnosis / Problem: Right Total Knee Replacement Discharge Goals Goal(s): Decrease discomfort, Improve function, Increase independence Activity Recommendations Activity Limitations: as noted below Weightbearing Status: Right weightbearing (as tolerated) . Instructions / Follow-Up Instructions / Follow-Up ACTIVITY RECOMMENDATIONS: SELF CARE INSTRUCTIONS AFTER TOTAL KNEE REPLACEMENT A. You may need to continue a physical therapy program after discharge from the hospital. There are several options available to you. Your doctor will assist you in selecting the best one for you. 1. An out-patient facility 2 to 3 times a week for therapy or home therapy. 2. Continue working on all exercises taught to you in the hospital. Your goals should be to increase bending of your knee to 90 degrees and beyond and to fully straighten your knee. B. You may progress at your own pace from walking with a walker or crutches to a cane; then to no assistive devices. C. Make walking a part of your daily routine. Be up as much as comfortable with rest periods throughout the day. Rest with leg elevation is very important. Use the ice wrap frequently for the first 3-4 weeks. D. There are no restrictions on activities. 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 E. Wear the long elastic stockings (SHIKHA hose) 20 hours a day for 2 weeks after surgery. They can be removed several times a day for laundering and for a bath. F. You may shower, no tub baths until cleared by your doctor. SPECIAL CARE INSTRUCTIONS: VERY IMPORTANT TO READ AND REVIEW A. There are a few signs you need to watch for after you are home. Call [facility] if you notice any of the followin. Increased severe knee pain. Some pain is expected especially when you exercise. 2. Increased swelling in your leg or knee; pain or swelling of the calf muscle in either lower leg. 3. Any fluid drainage from the incision. 4. Shortness of breath or chest pain. B. Please call [facility] at if you have any concerns or questions about your operation or recovery. The doctor or his nurse will return your call promptly. C. You must take antibiotics before dental work, bladder, bowel or other surgery. Your doctor will provide you with a permanent care to carry describing this precaution. IMPORTANT: * REMEMBER TO TAKE ASPIRIN, 81 MG, TWICE DAILY FOR 4 WEEKS UNLESS OTHERWISE DIRECTED. THIS IS YOUR BLOOD THINNER. * HIGH RISK PATIENTS MAY BE PRESCRIBED A STRONGER BLOOD THINNER. THIS WILL BE PROVIDED AT DISCHARGE. * CALL IF INCREASED PAIN, REDNESS, DRAINAGE OR FEVER GREATER THAT 101. * WEAR SIHKHA HOSE 20 HOURS PER DAY FOR 2 WEEKS. * DERMABOND Prineo- This is a mesh tape dressing that is covered with glue. It should remain in place until the incision is properly healed, usually 10-14 days. This dressing is designed to naturally slough off. You may trim the excess mesh tape as it peels off. Incision may be briefly wet in a shower. Dry immediately by blotting with a clean, dry towel. Do not bath or swim until instructed by your doctor. Do not scratch, rub, or pick at the dressing. Do not apply any topical ointments or lotions until dressing is completely removed and/or instructed by your doctor. There may be a small piece of suture material at one end of your incision. Do not pull or trim this. If it is bothersome or catching on clothing, you may cover it with a band-aid. FOLLOW UP VISIT: If appointment is not already scheduled: Please call [facility] to make a follow-up appointment for 2 weeks after your surgery at . Current Hospital Diet Patient's current hospital diet: Diabetes Type 2 Diet Discharge Diet Recommended Diet: Diabetes Type 2 Diet Procedures Procedures Performed: Right Total Knee Arthroplasty, Cemented size 6 femur 5 tibia 11 Deepti 35 oval patella journey to patient-matched total knee arthroplasty Pending Studies Studies pending at discharge: no Laboratory Results Hemoglobin A1c Test 08/03/17 13:00 Range/Units Estimated Average Glucose 157 mg/dl Hemoglobin A1c 7.1 H 4.5-5.6 % Medical Emergencies . Who to Call and When: Medical Emergencies: If at any time you feel your situation is an emergency, please call 911 immediately. . Non-Emergent Contact Non-Emergency issues call your: Primary Care Provider, Surgeon . "Provider Documentation" section prepared by Richard Mtz. . VTE Core Measure Inpt VTE Proph given/why not?: Other Anticoagulation (ASA and Plavix), T.E.DSteven Stockings, SCD's [place] Drug Monitoring Program Search Results: patient reviewed within database, no issues identified
[2017-09-02] MEDS ORDERED: ALLOPURINOL 300 MG TAB PO SCH (12:00)
--- NOTE | 2017-09-02 12:07 | Hospitalist Progress Note ---
Hospitalist Progress Note Date of Service Sep 02, 2017. (Patsy Burton ., NANCY) Subjective Pt evaluation today including: conversation w/ patient, physical exam, lab review, review of inpatient medication list Voiding: no voiding problems Patient resting in bed. Eating and drinking OK. +flatus postop, no BM. Pain is well controlled. Did well with PT this AM. Planning to go home at discharge. Patient denies any fever, chills, sweats, lightheadedness, dizziness, vision changes, CP, palpitations, edema, SOB, wheezing, cough, abdominal pain, nausea, vomiting, diarrhea, urinary symptoms, melena, numbness/tingling, weakness, muscle/joint pain, anxiety/depression, active bleeding, or new skin discoloration/changes. (Patsy Burton ., LINNEAC) Medications Current Inpatient Medications Medications (Trade) Dose Ordered Sig/Blanche Route Start Time Stop Time Status Last Admin Dose Admin Oxycodone HCl (Roxicodone Immediate Rel Tab) 1 TABLET FOR PAIN RATING... Q4H PRN PO 09/01/17 09:15 09/15/17 09:14 Acetaminophen (Tylenol Tab) 1,000 mg Q8 PO 09/01/17 14:00 10/01/17 13:59 09/02/17 06:45 1,000 MG Magnesium Hydroxide (Milk Of Magnesia Susp) 30 ml Q6H PRN PO 09/01/17 09:15 10/01/17 09:14 Bisacodyl (Dulcolax Supp) 10 mg DAILY PRN UT 09/01/17 09:15 10/01/17 09:14 Sodium Biphosphate/ Sodium Phosphate (Fleet Enema) 132 ml DAILY PRN UT 09/01/17 09:15 10/01/17 09:14 Senna (Senokot Tab) 17.2 mg HS PO 09/01/17 21:00 10/01/17 20:59 09/01/17 20:51 17.2 MG Docusate Sodium (coLACE CAP) 100 mg BID PO 09/01/17 21:00 10/01/17 20:59 09/02/17 08:37 100 MG Diphenhydramine HCl (Benadryl Cap) 25 mg Q8H PRN PO 09/01/17 09:15 10/01/17 09:14 Al Hydrox/Mg Hydrox/Simethicone (Maalox Max Susp) 15 ml Q4H PRN PO 09/01/17 09:15 10/01/17 09:14 Zolpidem Tartrate (Ambien Tab) 5 mg HSZ PRN PO 09/01/17 09:15 10/01/17 09:14 Multivitamins (Multivitamin Tab) 1 tab QAM PO 09/02/17 09:00 10/02/17 08:59 09/02/17 08:37 1 TAB Ondansetron HCl (Zofran Inj) 4 mg Q6H PRN IV 09/01/17 09:15 10/01/17 09:14 Ferrous Gluconate (Ferrous Gluconate Tab) 324 mg TIDM PO 09/01/17 12:30 10/01/17 12:29 09/02/17 08:37 324 MG Pantoprazole Sodium (Protonix Tab) 40 mg QAM PO 09/02/17 09:00 10/02/17 08:59 09/02/17 08:39 40 MG Tramadol HCl (Ultram Tab) 1 tablet for pain rating... Q4H PRN PO 09/01/17 09:15 10/01/17 09:14 09/02/17 08:45 100 MG Aspirin (Ecotrin Tab) 81 mg DAILY PO 09/02/17 09:00 10/02/17 08:59 09/02/17 08:37 81 MG Atorvastatin Calcium (Lipitor Tab) 40 mg HS PO 09/01/17 21:00 10/01/17 20:59 09/01/17 20:51 40 MG Clopidogrel Bisulfate (plAVix TAB) 75 mg QAM PO 09/02/17 09:00 10/02/17 08:59 09/02/17 08:38 75 MG Colchicine (Colchicine Tab) 0.6 mg DAILY PRN PO 09/01/17 09:15 10/01/17 09:14 Dicyclomine HCl (Bentyl Cap) 10 mg TID PRN PO 09/01/17 09:15 10/01/17 09:14 Finasteride (Proscar Tab) 5 mg QAM PO 09/02/17 09:00 10/02/17 08:59 09/02/17 08:38 5 MG Nitroglycerin (Nitrostat Tab) 0.4 mg UD PRN UT 09/01/17 09:15 10/01/17 09:14 Potassium Chloride (Klor-Con M10) 10 meq QAM PO 09/02/17 09:00 10/02/17 08:59 09/02/17 08:38 10 MEQ Calcium/Vitamin D (Caltrate Plus Tab) 1 tab DAILY@1200 PO 09/01/17 12:00 10/01/17 11:59 09/01/17 13:14 1 TAB Cholecalciferol (Vitamin D Tab) 2,000 inter.unit DAILY@1200 PO 09/01/17 12:00 10/01/17 11:59 09/01/17 13:15 2,000 INTER.UNIT Miscellaneous Information (Consult Glycemic Management Pharmacy) 1 ea UD PRN N/A 09/01/17 10:48 10/01/17 10:47 Insulin Aspart (novoLOG ASPART) SLIDING SCALE ACHS SC 09/01/17 12:00 10/01/17 11:59 09/02/17 08:42 6 UNITS Glucose (Glucose 40% Gel) 15-30 GRAMS 15 GRAMS... UD PRN PO 09/01/17 11:00 10/01/17 10:59 Glucose (Glucose Chew Tab) 4-8 Tablets 4 Tabl... UD PRN PO 09/01/17 11:00 10/01/17 10:59 Dextrose (Dextrose 50% 50ML Syringe) 25-50ML OF 50% DW IV FOR... UD PRN IV 09/01/17 11:00 10/01/17 10:59 Glucagon (Glucagon Inj) 1 mg UD PRN SQ 09/01/17 11:00 10/01/17 10:59 Atenolol (Tenormin Tab) 100 mg DAILY@1200 PO 09/01/17 12:00 10/01/17 11:59 Gabapentin (Neurontin Cap) 100 mg HS PO 09/01/17 21:00 10/01/17 20:59 09/01/17 20:52 100 MG Hydralazine HCl (HydrALAZINE INJ) 10 mg Q6H PRN IV. 09/01/17 15:15 10/01/17 15:14 Allopurinol (Zyloprim Tab) 300 mg DAILY@1200 PO 09/02/17 12:00 10/02/17 11:59 Metformin HCl (Glucophage Tab) 500 mg BIDM PO 09/02/17 17:45 10/02/17 17:44 (Patsy Burton PA-C) Objective Vital Signs Date Time Temp Pulse Resp B/P (MAP) Pulse Ox O2 Delivery O2 Flow Rate FiO2 09/02/17 08:15 96 Room Air 09/02/17 08:12 36.3 60 16 132/84 (100) 96 Room Air 09/02/17 07:25 Room Air 09/02/17 04:12 36.6 58 16 109/65 (80) 96 Room Air 09/02/17 00:10 98 Room Air 09/01/17 23:39 37.1 59 17 114/61 (78) 95 Room Air 09/01/17 19:42 36.4 62 16 147/80 (102) 97 Room Air 09/01/17 15:43 37.0 66 17 144/81 (102) 98 Nasal Cannula 2.0 09/01/17 15:30 Room Air 09/01/17 13:31 68 16 125/85 (98) 97 Nasal Cannula (Patsy Burton, JEMIMA-C) Physical Exam General Appearance: no apparent distress Eyes: normal inspection, PERRL ENT: hearing grossly normal Neck: supple Respiratory/Chest: lungs clear, no respiratory distress, no accessory muscle use Cardiovascular: regular rate, rhythm Abdomen: normal bowel sounds, non tender, soft Extremities: no pedal edema, no calf tenderness, + pertinent finding (RLE in SANIA wrap ) Neurologic/Psychiatric: alert, normal mood/affect, oriented x 3 Skin: normal color, warm/dry, no rash (Patsy Burton, JEMIMA-C) Laboratory Results Last 24 Hours Test 09/01/17 12:01 09/01/17 15:29 09/01/17 17:14 09/01/17 20:29 Bedside Glucose 146 mg/dl 142 mg/dl 175 mg/dl White Blood Count 11.00 K/uL Red Blood Count 3.22 M/uL Hemoglobin 10.4 g/dL Hematocrit 29.9 % Mean Corpuscular Volume 92.9 fL Mean Corpuscular Hemoglobin 32.3 pg Mean Corpuscular Hemoglobin Concent 34.8 g/dl RDW Standard Deviation 43.8 fL RDW Coefficient of Variation 12.9 % Platelet Count 162 K/uL Mean Platelet Volume 9.6 fL Sodium Level 136 mmol/L Potassium Level 4.2 mmol/L Chloride Level 104 mmol/L Carbon Dioxide Level 25 mmol/L Anion Gap 7.0 mmol/L Blood Urea Nitrogen 22 mg/dl Creatinine 1.14 mg/dl Est Creatinine Clear Calc Drug Dose 75.1 ml/min Estimated GFR () 75.1 Estimated GFR (Non- 64.8 BUN/Creatinine Ratio 19.0 Random Glucose 160 mg/dl Calcium Level 9.0 mg/dl Test 09/02/17 00:31 09/02/17 04:10 09/02/17 06:23 09/02/17 07:58 Bedside Glucose 123 mg/dl 124 mg/dl 120 mg/dl White Blood Count 10.41 K/uL Red Blood Count 2.81 M/uL Hemoglobin 8.9 g/dL Hematocrit 26.1 % Mean Corpuscular Volume 92.9 fL Mean Corpuscular Hemoglobin 31.7 pg Mean Corpuscular Hemoglobin Concent 34.1 g/dl RDW Standard Deviation 43.7 fL RDW Coefficient of Variation 12.9 % Platelet Count 172 K/uL Mean Platelet Volume 10.0 fL Prothrombin Time 11.0 SECONDS Prothromb Time International Ratio 1.0 Sodium Level 139 mmol/L Potassium Level 3.8 mmol/L Chloride Level 107 mmol/L Carbon Dioxide Level 24 mmol/L Anion Gap 8.0 mmol/L Blood Urea Nitrogen 19 mg/dl Creatinine 1.09 mg/dl Est Creatinine Clear Calc Drug Dose 78.6 ml/min Estimated GFR () 79.3 Estimated GFR (Non- 68.4 BUN/Creatinine Ratio 17.1 Random Glucose 125 mg/dl Calcium Level 8.4 mg/dl (Patsy Burton PA-C) Assessment and Plan 72 y/o male with a history of CAD s/p stents x 2 (), HTN, HLD, DM II, BPH, gout, and GERD who presents s/p right TKA with Dr. Ivy on 09/01 for medical management. s/p R TKA by Dr. Ivy on 09/01: - Surgical management, pain management, DVT prophylaxis, and PT/OT as per primary team - Bowel regimen ordered - Encourage incentive spirometer - Follow postop CBC and PRP Acute on chronic anemia secondary acute blood loss from surgical procedure- baseline hgb 12.0: - Continue to follow H&H - Transfuse PRN for hgb < 7.0 or symptomatic - Continue iron supplement CAD s/p stents, HTN, HLD- STABLE: - Continue ASA, Plavix 75 mg daily, Atenolol 100 mg PO daily, Lipitor 40 mg PO daily - Held Diovan postop pending PRP and volume status- BPs stable, will continue to hold at this time - Hydralazine 10 mg IV q6h PRN SBP >180 DM II- last HgbA1c 7.1% on 08/03/17: - Metformin 500 mg BID - BSG ACHS and ISS BPH: Continue Proscar 5 mg PO qd Gout: Continue Allopurinol 300 mg PO noon GERD: Nexium converted to Protonix while inpatient DVT prophylaxis: ASA 81 mg daily as per surgical team Code Status: LEVEL I, FULL Dispo: As per primary team (Patsy Burton, PA-C) Supervising Note Dr. Reilly I performed a history and physical examination on the patient. I reviewed above note and agree with it. I discussed plan with APC and patient. During my face to face encounter with the patient, I answered all of the patient's questions. (Phillip Reilly M.D.)
[2017-09-02] MEDS: CHOLECALCIFEROL 1000 INTER.UNIT TAB PO SCH (12:12)
[2017-09-02] MEDS: CALCIUM 600MG + VIT D 400 IU TAB PO SCH (12:12)
[2017-09-02] MEDS: METFORMIN HCL 500 MG TAB PO SCH (18:46)
[2017-09-02] MEDS: ATORVASTATIN 40 MG TAB PO SCH (21:34)
[2017-09-02] MEDS: SENNA 8.6 MG TAB PO SCH (21:34)
[2017-09-02] MEDS: GABAPENTIN 100 MG CAP PO SCH (21:34)
[2017-09-03] MEDS: ACETAMINOPHEN 500 MG TAB PO SCH (05:57)
[2017-09-03 06:35] LABS: HEMATOCRIT 26.6 % (42-52); HEMOGLOBIN 8.8 g/dL (14.0-18.0)
[2017-09-03 06:49] VITALS: BP 129/70; PULSE 63; TEMP 37.4; O2SAT 96
--- NOTE | 2017-09-03 07:27 | Orthopedic Progress Note ---
Orthopedic Progress Note Date of Service Sep 03, 2017. Subjective Post OP Day: 2 Reports: feeling well Additional Notes: c/o posterior knee pain this AM after doing heel prop. Also with mild thigh pain. Objective calves soft nontender, N/V intact, incision C/D/I, A&O x3, toes mobile Date Time Temp Pulse Resp B/P (MAP) Pulse Ox O2 Delivery O2 Flow Rate FiO2 09/03/17 06:49 37.4 63 19 129/70 (89) 96 Room Air 09/03/17 00:50 CPAP 09/02/17 23:12 37.1 59 16 136/79 (98) 92 Room Air 09/02/17 16:00 Room Air 09/02/17 15:32 36.2 53 16 120/67 (84) 94 Room Air 09/02/17 12:04 36.7 64 20 138/78 (98) 97 Room Air 09/02/17 09:49 59 97 09/02/17 08:15 96 Room Air 09/02/17 08:12 36.3 60 16 132/84 (100) 96 Room Air Laboratory Results 24 Hours: Test 09/03/17 06:00 Hematocrit 26.6 % Hemoglobin 8.8 g/dL Assessment & Plan Assessment: POD 2 s/p Right TKA Plan: PT/OT Planning to dc home with [facility] Inhouse Planning Pain Management: Ultram, PO Tylenol, Oxy IR DVT Prophylaxis: TEDs, SCDs, ASA, other (Plavix) Discharge Planning Discharge Planning: home with home health Pain Management: PO Tylenol, Oxy IR DVT Prophylaxis: TEDs, ASA Therapy: Physical Therapy
[2017-09-03] MEDS ORDERED: ACET-24 PO (07:30)
[2017-09-03] MEDS ORDERED: ASPI81TA21 PO (07:30)
[2017-09-03] MEDS ORDERED: RXC5 PO (07:30)
--- NOTE | 2017-09-03 07:41 | Discharge Summary ---
Orthopedic Discharge Summary Admission Date/Reason Sep 01, 2017 at 07:03 Right Knee Osteoarthritis. Discharge Date/Disposition Sep 03, 2017 Home with services Diagnosis Principal Diagnosis: Right TKA Procedure(s) Performed Right Total Knee Arthroplasty, Cemented size 6 femur 5 tibia 11 Deepti 35 oval patella journey to patient-matched total knee arthroplasty [place] [facility] [place]- medical management Medication Reconciliation New Medications: Acetaminophen (Sb Non-Aspirin Extra Stre) 500 Mg Tab 1000 MG PO Q8 for 21 Days, #126 TAB Oxycodone HCl (Oxycodone HCl) 5 Mg Tab 5-10 MG PO Q4H PRN for Pain, #60 TAB Changed Medications: Aspirin Enteric Coated (Ecotrin Or Generic) 81 Mg Tab 81 MG PO BID for 30 Days, #60 TAB (Changed from: NOON) After 30 days, resume your once daily dosing. Continued Medications: Allopurinol (Zyloprim) 300 Mg Tab 300 MG PO NOON, TAB Atenolol (Tenormin) 100 Mg Tab 100 MG PO DAILY AT LUNCH, 0 Refills Atorvastatin (Lipitor) 40 Mg Tab 40 MG PO HS, 0 Refills Calcium Carbonate-Vitamin D (Calcium + D) 1 Tab Tab 1 TAB PO NOON Cholecalciferol (Vitamin D3) 2,000 Unit Cap 2000 INTER.UNIT PO DAILY AT LUNCH Clopidogrel (Plavix) 75 Mg Tab 75 MG PO QAM, 0 Refills Colchicine (Colcrys) 0.6 Mg Tab 1 TAB PO DAILY PRN for GOUT Cyclobenzaprine Hcl (Flexeril) 10 Mg Tab 10 MG PO UD PRN for spasms, #21 TAB Esomeprazole Magnesium (Nexium) 40 Mg Capcr 40 MG PO QPM, CAP Ferrous Sulfate (Kp Ferrous Sulfate) 325 Mg Tab 1 TAB PO 3XWEEK for 30 Days, TAB 3 Refills Thursday HS Finasteride (Proscar) 5 Mg Tab 5 MG PO QAM, TAB Gabapentin (Gabapentin) 100 Mg Cap 100 MG PO HS Metformin HCl (Metformin HCl) 850 Mg Tab 850 MG PO BID Methylcellulose (Laxative) (Citrucel Fiber Laxative) 1 Pow Pow 1 DOSE PO QAM Multivitamin (Multivitamin) Tab 1 TAB PO QAM, 0 Refills Nitroglycerin (Nitrostat) 0.4 Mg Tab 0.4 MG UT PRN, 0 Refills Potassium Chloride (Micro-K Ext Rel) 10 Meq Capcr 10 MEQ PO QAM, 0 Refills Valsartan/Hctz (Diovan Hct 160MG/25MG) 1 Tab Tab 1 TAB PO QAM, TAB Discontinued Medications: Diclofenac (Voltaren) 50 Mg Tabec 50 MG PO UD PRN for Pain, TAB [id number]-[id number] C- (Glucosamine Chondroitin) 1 Tab Tab 1 TAB PO QAM Naproxen Ds (Naprosyn Ds) 550 Mg Tab 550 MG PO DAILY PRN for Pain, TAB Admission Physical Exam As per Admitting History & Physical. Hospital Course Patient was a same day admission after undergoing a successful right TKA. He tolerated the procedure well. Post-operatively, his activity was progressed and well tolerated. Please refer to daily progress notes and PT notes for complete details. After exam on 09/03/17, patient felt to be stable for discharge home with HHPT. Patient will f/u in the office in 2 weeks for further evaluation including x-rays and incision check, sooner if having any issues or concerns. Below are pertinent labs/studies during their hospital stay: Last Resulted CBC 09/02/17 06:23 09/03/17 06:00 Last Resulted BMP 09/02/17 06:23 Last Vital Signs Documentation Date Time Temp Pulse Resp B/P (MAP) Pulse Ox O2 Delivery O2 Flow Rate FiO2 09/03/17 06:49 37.4 63 19 129/70 (89) 96 Room Air 09/01/17 15:43 2.0 Discharge Instructions ACTIVITY RECOMMENDATIONS: SELF CARE INSTRUCTIONS AFTER TOTAL KNEE REPLACEMENT A. You may need to continue a physical therapy program after discharge from the hospital. There are several options available to you. Your doctor will assist you in selecting the best one for you. 1. An out-patient facility 2 to 3 times a week for therapy or home therapy. 2. Continue working on all exercises taught to you in the hospital. Your goals should be to increase bending of your knee to 90 degrees and beyond and to fully straighten your knee. B. You may progress at your own pace from walking with a walker or crutches to a cane; then to no assistive devices. C. Make walking a part of your daily routine. Be up as much as comfortable with rest periods throughout the day. Rest with leg elevation is very important. Use the ice wrap frequently for the first 3-4 weeks. D. There are no restrictions on activities. You may ride in a car, shop, participate in marble worker and all social activities. E. Wear the long elastic stockings (SHIKHA hose) 20 hours a day for 2 weeks after surgery. They can be removed several times a day for laundering and for a bath. F. You may shower, no tub baths until cleared by your doctor. SPECIAL CARE INSTRUCTIONS: VERY IMPORTANT TO READ AND REVIEW A. There are a few signs you need to watch for after you are home. Call [facility] if you notice any of the followin. Increased severe knee pain. Some pain is expected especially when you exercise. 2. Increased swelling in your leg or knee; pain or swelling of the calf muscle in either lower leg. 3. Any fluid drainage from the incision. 4. Shortness of breath or chest pain. B. Please call [facility] at if you have any concerns or questions about your operation or recovery. The doctor or his nurse will return your call promptly. C. You must take antibiotics before dental work, bladder, bowel or other surgery. Your doctor will provide you with a permanent care to carry describing this precaution. IMPORTANT: * REMEMBER TO TAKE ASPIRIN, 81 MG, TWICE DAILY FOR 4 WEEKS UNLESS OTHERWISE DIRECTED. THIS IS YOUR BLOOD THINNER. * HIGH RISK PATIENTS MAY BE PRESCRIBED A STRONGER BLOOD THINNER. THIS WILL BE PROVIDED AT DISCHARGE. * CALL IF INCREASED PAIN, REDNESS, DRAINAGE OR FEVER GREATER THAT 101. * WEAR SHIKHA HOSE 20 HOURS PER DAY FOR 2 WEEKS. * DERMABOND Prineo- This is a mesh tape dressing that is covered with glue. It should remain in place until the incision is properly healed, usually 10-14 days. This dressing is designed to naturally slough off. You may trim the excess mesh tape as it peels off. Incision may be briefly wet in a shower. Dry immediately by blotting with a clean, dry towel. Do not bath or swim until instructed by your doctor. Do not scratch, rub, or pick at the dressing. Do not apply any topical ointments or lotions until dressing is completely removed and/or instructed by your doctor. There may be a small piece of suture material at one end of your incision. Do not pull or trim this. If it is bothersome or catching on clothing, you may cover it with a band-aid. FOLLOW UP VISIT: If appointment is not already scheduled: Please call [facility] to make a follow-up appointment for 2 weeks after your surgery at .
[2017-09-03] MEDS: INSULIN ASPART 100 UNITS/ML 3 ML PEN SC SCH (08:00)
[2017-09-03] MEDS: FERROUS GLUCONATE 324 MG TAB PO SCH (08:29)
[2017-09-03] MEDS: DOCUSATE SODIUM 100 MG CAP PO SCH (08:30)
[2017-09-03] MEDS: ASPIRIN 81 MG ECTAB PO SCH (08:30)
[2017-09-03] MEDS: METFORMIN HCL 500 MG TAB PO SCH (08:31)
[2017-09-03] MEDS: POTASSIUM CHLORIDE 10 MEQ TABCR PO SCH (08:31)
[2017-09-03] MEDS: MULTIVITAMIN TAB PO SCH (08:31)
[2017-09-03] MEDS: PANTOprazole SOD 40 MG TAB PO SCH (08:32)
[2017-09-03] MEDS: FINASTERIDE 5 MG TAB PO SCH (08:32)
[2017-09-03] MEDS: CLOPIDOGREL BISULFATE 75 MG TAB PO SCH (08:32)
[2017-09-03] MEDS: TRAMADOL HCL 50 MG TAB PO PRN (08:35)
[2017-09-03 09:35] VITALS: BP 129/70; PULSE 63; TEMP 37.4; O2SAT 96
== END 2017-09-03 11:23 | disposition home health service (06) | DRG 470 ==
LOC: C.ACU 05:26 → C.3E 07:03 → ENRESERV 10:06
PROVIDERS: ADMIT Orthopaedic Surgery; ATTEND Orthopaedic Surgery
PROC: 0SRC0J9 Replacement of Right Knee Joint with Synthetic Substitute, Cemented, Open Approach (ICD-10-PCS; principal; 2017-09-01 07:15)
DX: M17.11 Unilateral primary osteoarthritis, right knee (principal); D62 Acute posthemorrhagic anemia; I11.9 Hypertensive heart disease without heart failure; I25.10 Atherosclerotic heart disease of native coronary artery without angina pectoris; E78.5 Hyperlipidemia, unspecified; E11.9 Type 2 diabetes mellitus without complications; D64.9 Anemia, unspecified; N40.0 Benign prostatic hyperplasia without lower urinary tract symptoms; M10.9 Gout, unspecified; K21.9 Gastro-esophageal reflux disease without esophagitis; E66.9 Obesity, unspecified; Z68.33 Body mass index [BMI] 33.0-33.9, adult; Z95.5 Presence of coronary angioplasty implant and graft; Z98.890 Other specified postprocedural states; Z87.891 Personal history of nicotine dependence; Z79.02 Long term (current) use of antithrombotics/antiplatelets; Z79.1 Long term (current) use of non-steroidal anti-inflammatories (NSAID); Z79.82 Long term (current) use of aspirin; Z79.84 Long term (current) use of oral hypoglycemic drugs; Z79.899 Other long term (current) drug therapy; Z82.49 Family history of ischemic heart disease and other diseases of the circulatory system; Z80.1 Family history of malignant neoplasm of trachea, bronchus and lung

== ENCOUNTER → 2017-11-13 | Outpatient (CLI) | payer BC ==
[~2017-11-13] MED LIST changes: +ACET-24 PO; -DIAZ2TAB PO; -DICL50TA3 PO; -DICY10CA12 PO; -GLC/500 PO; -GLUCTAB7 PO; +METF850T10 PO; -NAPR-1168 PO; +NRN100 PO; +RXC5 PO
== END | disposition home or self-care (01) ==
LOC: C.LAB 07:17
PROVIDERS: ATTEND Internal Medicine Cardiovascular Disease
DX: I25.10 Atherosclerotic heart disease of native coronary artery without angina pectoris (principal)

== ENCOUNTER 2021-04-25 05:06 | Inpatient (IN) ==
--- NOTE | 2021-04-16 10:28 | History & Physical Report ---
Date of Service April 16, 2021 date of surgery: 04/25/21 Procedure: Left Total Knee Arthroplasty Assessment & Plan (1) Arthritis of knee, left: Plan: Further care discussed with patient and at this point in time has failed conservative measures and would like to proceed with a left total knee replacement. Plan on discharge will be home with home health physical therapy. DVT prophylaxis with TEDs, SCDs and will also resume Plavix and aspirin 81 mg p.o. b.i.d. for a month postop. Patient will have follow up appointment in our office two weeks post op for staple/suture removal and re-evaluation. Patient otherwise has no other questions or concerns. The risks and benefits have been discussed including, but not limited to, risk of infection, nerve injury, stiffness, loss of motion, failure to improve, etc. Reasonable outcomes and options of treatment were discussed. An explanation of appropriate alternatives to the procedure that may be advantageous were discussed and their risks and benefits, as well as the risks and benefits of not proceeding with treatment. I offered to answer any additional inquiries concerning the treatment involved. All the patient's questions were answered. The patient is agreeable, understanding of the treatment plan and alternatives, and wishes to proceed with the treatment plan. History of Present Illness Chief Complaint: left knee pain Primary Care Provider: Josue Patel MD Fredy is a 75 year old male who complains of left knee pain, presents for pre-op evaluation prior to a left total knee replacement by Dr Ivy at [facility]. he complains of pain, decreased range of motion, instability and stiffness in his left knee. Currently he states that the symptoms are moderate-severe and rated 6/10. The pain is described as aching, sharp and throbbing. His symptoms are aggravated by ascending stairs, daily activities, first steps while awake walking. His NSAID use is limited due to Plavix and ASA use. He has been treated with previous cortisone and visco injections in the past without much relief. he has undergone prior left knee scope approximately 10 years ago as well. Allergies Allergy/AdvReac Type Severity Reaction Status Date / Time No Known Drug Allergies Allergy Unknown Verified 02/04/21 12:25 Home Medications Medication Instructions Recorded Confirmed Type allopurinol 300 mg tablet 300 mg PO QDL tab 05/03/19 02/04/21 History aspirin 81 mg tablet,delayed 81 mg PO QAM tab 05/03/19 02/04/21 History release atorvastatin 40 mg tablet 40 mg PO HS tab 05/03/19 02/04/21 History clopidogrel 75 mg tablet 75 mg PO QAM tab 05/03/19 02/04/21 History esomeprazole magnesium 40 mg 40 mg PO QPM #90 cap 05/03/19 02/04/21 History capsule,delayed release finasteride 5 mg tablet 5 mg PO QAM tab 05/03/19 02/04/21 History metformin 850 mg tablet 850 mg PO BID tab 05/03/19 02/04/21 History nitroglycerin 0.4 mg sublingual 0.4 mg SL Q5M PRN tab 05/03/19 02/04/21 History tablet potassium chloride 10 mEq 10 meq PO QAM cap 05/03/19 02/04/21 History capsule,extended release valsartan 160 1 tab PO QAM tab 05/03/19 02/04/21 History mg-hydrochlorothiazide 25 mg tablet coenzyme Q10 100 mg capsule (Co 100 mg PO QAM 06/07/19 02/04/21 History Q-10) colchicine 0.6 mg tablet (Colcrys) 0.6 mg PO DAILY PRN 06/07/19 02/04/21 History cyclobenzaprine 10 mg tablet 10 mg PO HS PRN 06/07/19 02/04/21 History dicyclomine 10 mg capsule 10 mg PO BID PRN 06/07/19 02/04/21 History multivitamin 1 cap PO QAM 06/07/19 02/04/21 History lactobacillus combination no.9 4 4,000 mmu cells PO HS 06/28/19 02/04/21 History billion cell capsule (Adult 50 Plus Probiotic) carvedilol phosphate 40 mg 40 mg PO QAM 12/28/19 02/04/21 History capsule,[id number] multiphase (Coreg CR) diclofenac potassium 50 mg tablet 50 mg PO QAM tab 02/20/20 02/04/21 History ferrous sulfate 325 mg (65 mg 325 mg PO HS tab 02/20/20 02/04/21 History iron) tablet calcium carbonate-vitamin D3 600 1 cap PO QDL 02/24/20 02/04/21 History mg calcium-200 unit capsule (Calcium 600 + D(3)) cholecalciferol (vitamin D3) 50 2,000 unit PO QDL 02/24/20 02/04/21 History mcg (2,000 unit) tablet (Vitamin D3) docusate sodium 100 mg tablet 100 mg PO BID 02/24/20 02/04/21 History (Stool Softener) gabapentin 100 mg capsule 100 mg PO HS 02/24/20 02/04/21 History methylcellulose (with sugar) oral 1 tbsp PO BID 02/24/20 02/04/21 History powder (Citrucel (sucrose)) turmeric 500 mg-black pepper 500 mg PO QPM 02/24/20 02/04/21 History extract 3 mg capsule amoxicillin 500 mg capsule 500 mg PO ONCE PRN cap 07/09/20 02/04/21 History diazepam 5 mg tablet 5 mg PO BID PRN 07/09/20 02/04/21 History amlodipine 10 mg tablet 10 mg PO QAM #90 tab 02/13/21 Rx Past Med/Surg History Medical History CAD (coronary artery disease) stents x2 (2003), Follows with Dr. Troy Chronic anemia hgb 11s per chart review Chronic back pain Diabetes mellitus, type 2 NIDDM GERD (gastroesophageal reflux disease) controlled Gout History of gastric ulcer several years ago Hyperlipidemia Hypertension Osteoarthritis Sleep apnea CPAP Vertigo Surgical History History of bilateral cataract extraction History of cardiac cath stents x2 (2003) History of carpal tunnel release of both wrists History of colonoscopy Colonoscopy (02/29/20): MAC at [facility] History of esophagogastroduodenoscopy (EGD) History of tooth extraction History of total right knee replacement (TKR) Right TKA (09/01/17): SAB at L3/L4 (x1 attempt) + PNB at [facility] Hx of repair of right rotator cuff Lump or mass in breast Removed Status post medial meniscus repair Right Status post medial meniscus repair of left knee Family History Other Cancer Heart disease Hypertension No family history of adverse response to anesthesia No family history of allergies No family history of bleeding disorder Denies family history of Hearing loss Stroke Asthma Social History Smoking Status: Former smoker Tobacco Type: Cigarettes packs per day: 0.5; Years Smoked: 6; Second Hand Exposure: Yes (father smoked); Hx Alcohol Use: Yes Alcohol type: beer and wine Alcohol Intake Frequency Comment: socially Hx Substance Use: No Preferred Language: Malay Communication Ability: Effective 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 Beliefs That Will Affect Care: None marital status: Current Living Situation: Spouse and Family Current Living Situation Comment: Lives with and stepson current occupational status: retired current occupation: Retired from [employer] Feels Safe at Home: Yes Assistive Devices: CPAP, Denture - Upper, Denture - Lower and Glasses Review of Systems Review of Systems: All systems reviewed & are unremarkable except as noted in HPI & below Constitutional: no fever, no chills and no sweats Respiratory: no cough and no dyspnea Cardiovascular: no chest pain, no dyspnea and no orthopnea Gastrointestinal: no abdominal pain, no nausea and no vomiting Musculoskeletal: as per Subjective / HPI Physical Exam Physical Exam: HT: 71 IN WT: 230 LB BP: 148/82 Constitutional: WD/WN, vitals as above no acute distress Respiratory: normal respiratory effort, lungs clear to auscultation no respiratory distress, no labored breathing and does not use accessory muscles Cardiovascular: RRR, no murmur, no edema Gastrointestinal (Abdomen): normal bowel sounds, soft, nontender, no hepatosplenomegaly Musculoskeletal: Knee: + knee abnormal to inspection (LEFT KNEE-), + effusion (+1 effusion), + surgical incision (well healed portals), + limited ROM of knee (ROM 0/3/110), + knee ROM with crepitation, + joint line tenderness (medial joint line) and + Elle's sign positive; no deformity, no skin erythema, no ecchymosis, no valgus laxity, no varus laxity, anterior drawer test negative, Noe's sign negative and pivot shift test negative Results & Data Results & Data ([facility]) Diagnostic Findings Left Knee X-ray: left knee series confirm advanced degenerative changes to the left knee, greatest medial compartments and patellofemoral joint, showing joint space narrowing, osteophyte formation and subchondral sclerosis. no acute bony pathology noted.
--- NOTE | 2021-04-23 09:34 | Anesthesiology Consultation ---
Date of Service April 23, 2021 Assessment & Plan (1) Encounter for pre-operative examination: Chart Review Chart Review: Acceptable Risk for Surgery (pending preop Covid testing results ) and Patient NOT seen in Pre Admission Testing -Will leave to anesthesiologist discretion DOS if coags needed (WNL on 02/19/21) - Check BSG AM DOS Per nursing assessment 04/17/2021, patient denies any recent travel. Wears mask in public. No known Covid infection in the past 90 days. Patient is vaccinated for Covid. No known Covid positive contacts or Covid related symptoms. Preop Covid testing 04/23/21= results pending Patient seen by cardiology 04/19/2021 = patient seen for preoperative cardiac evaluation. "He remains stable from a cardiac standpoint. He is active (achieving >4METS) without anginal type symptoms. On exam appears well perfused without signs of heart failure or significant peripheral vascular disease. From cardiac standpoint patient can proceed with planned TKA without additional cardiac testing/intervention. OK to hold clopidogrel now until felt safe to resume from surgical standpoint. Recommend continuing aspirin including morning of surgery given his history of coronary stenting." Seen by PCP 04/04/2021 = patient seen for preop clearance discussion. Diabetesrecently found to have elevated hemoglobin [id number] on Trulicity and a low-carb diet. Continues with Metformin. Blood sugars have improved with recent records of BCG's. Hyperlipidemiaon statin. CAD2 stents placed in 2003follows with cardio since that time. Hypertensionon medications. "He is an acceptable risk for surgery." Right TKA 09/01/17= Done under SAB at L3-4 with 1 attempt. History Surgery Operation Date: 04/25/21 07:15 Proposed Procedures p Left Total Knee Arthroplasty - Momo Ivy DO Height/Weight Height: 5 ft 10 in Weight: 102.058 kg Allergies Allergy/AdvReac Type Severity Reaction Status Date / Time No Known Drug Allergies Allergy Unknown Verified 04/19/21 09:21 Medications Home Medications Medication Instructions Recorded Confirmed Last Taken allopurinol 300 mg tablet 300 mg PO QDL tab 05/03/19 04/19/21 05/11/20 aspirin 81 mg tablet,delayed 81 mg PO QAM tab 05/03/19 04/19/21 05/11/20 release atorvastatin 40 mg tablet 40 mg PO HS tab 05/03/19 04/19/21 05/11/20 clopidogrel 75 mg tablet 75 mg PO QAM tab 05/03/19 04/19/21 05/11/20 esomeprazole magnesium 40 mg 40 mg PO QPM #90 cap 05/03/19 04/19/21 05/11/20 capsule,delayed release finasteride 5 mg tablet 5 mg PO QAM tab 05/03/19 04/19/21 05/11/20 metformin 850 mg tablet 850 mg PO BID tab 05/03/19 04/19/21 05/11/20 nitroglycerin 0.4 mg sublingual 0.4 mg SL Q5M PRN tab 05/03/19 04/19/21 05/11/20 tablet potassium chloride 10 mEq 10 meq PO QAM cap 05/03/19 04/19/21 05/11/20 capsule,extended release valsartan 160 1 tab PO QAM tab 05/03/19 04/19/21 05/11/20 mg-hydrochlorothiazide 25 mg tablet coenzyme Q10 100 mg capsule (Co 100 mg PO QAM 06/07/19 04/19/21 05/11/20 Q-10) colchicine 0.6 mg tablet (Colcrys) 0.6 mg PO DAILY PRN 06/07/19 04/19/21 05/11/20 cyclobenzaprine 10 mg tablet 10 mg PO HS PRN 06/07/19 04/19/21 05/11/20 dicyclomine 10 mg capsule 10 mg PO BID PRN 06/07/19 04/19/21 05/11/20 multivitamin 1 cap PO QAM 06/07/19 04/19/21 05/11/20 lactobacillus combination no.9 4 4,000 mmu cells PO HS 06/28/19 04/19/21 05/11/20 billion cell capsule (Adult 50 Plus Probiotic) carvedilol phosphate 40 mg 40 mg PO HS 12/28/19 04/19/21 05/11/20 capsule,[id number] multiphase (Coreg CR) diclofenac potassium 50 mg tablet 50 mg PO QAM tab 02/20/20 04/19/21 05/11/20 ferrous sulfate 325 mg (65 mg 325 mg PO HS tab 02/20/20 04/19/21 05/11/20 iron) tablet calcium carbonate-vitamin D3 600 1 cap PO QDL 02/24/20 04/19/21 05/11/20 mg calcium-200 unit capsule (Calcium 600 + D(3)) cholecalciferol (vitamin D3) 50 2,000 unit PO QDL 02/24/20 04/19/21 05/11/20 mcg (2,000 unit) tablet (Vitamin D3) docusate sodium 100 mg tablet 100 mg PO BID 02/24/20 04/19/21 05/11/20 (Stool Softener) gabapentin 100 mg capsule 100 mg PO HS 02/24/20 04/19/21 05/11/20 methylcellulose (with sugar) oral 1 tbsp PO BID 02/24/20 04/19/21 05/11/20 powder (Citrucel (sucrose)) turmeric 500 mg-black pepper 500 mg PO QPM 02/24/20 04/19/21 05/11/20 extract 3 mg capsule amoxicillin 500 mg capsule 500 mg PO ONCE PRN cap 07/09/20 04/19/21 Unknown diazepam 5 mg tablet 5 mg PO BID PRN 07/09/20 04/19/21 Unknown amlodipine 10 mg tablet 10 mg PO QAM #90 tab 02/13/21 04/19/21 Unknown dulaglutide 0.75 mg/0.5 mL 0.75 mg SUBCUT WK 04/17/21 04/19/21 Unknown subcutaneous pen injector (Trulicity) glucos sul [id number] PO 04/19/21 04/19/21 Unknown [Glucosamine Chondroitin] Past Medical History Medical History (Updated 04/23/21 @ 09:41 by Shahrzad Avendano PA-C) BPH (benign prostatic hyperplasia) CAD (coronary artery disease) stents x2 to LAD (2003), Follows with Dr. Troy Chronic anemia hgb 11s per chart review Chronic back pain Diabetes mellitus, type 2 NIDDM GERD (gastroesophageal reflux disease) controlled Gout History of gastric ulcer several years ago Hyperlipidemia Hypertension Osteoarthritis Sleep apnea CPAP Vertigo Past Family History Family History Other Cancer Heart disease Hypertension No family history of adverse response to anesthesia No family history of allergies No family history of bleeding disorder Denies family history of Hearing loss Stroke Asthma Past Surgical History Surgical History History of bilateral cataract extraction History of cardiac cath stents x2 (2004) History of carpal tunnel release of both wrists History of colonoscopy Colonoscopy (02/29/20): MAC at [facility] History of esophagogastroduodenoscopy (EGD) History of tooth extraction History of total right knee replacement (TKR) Right TKA (09/01/17): SAB at L3/L4 (x1 attempt) + PNB at [facility] Hx of repair of right rotator cuff Lump or mass in breast Removed Status post medial meniscus repair Right Status post medial meniscus repair of left knee Social History Smoking Status: Former smoker Do You Dip or Chew Tobacco: No Hx Alcohol Use: Yes Alcohol type: beer and wine alcohol intake frequency: holidays/special occasions only Hx Substance Use: No substance use type: does not use Lab Results Anesthesia Preop Results Results Anesthesia Widget: WBC 7.61 K/uL (4.8-10.8) 04/02/21 Hgb 11.7 g/dL (14.0-18.0) L 04/02/21 Hct 35.0 % (42-52) L 04/02/21 Plt 241 K/uL (130-400) 04/02/21 Na 141 mmol/L (136-145) 04/02/21 K 3.8 mmol/L (3.5-5.1) 04/02/21 Cl 108 mmol/L (98-107) H 04/02/21 CO2 28 mmol/L (21-32) 04/02/21 BUN 17 mg/dl (7-18) 04/02/21 Creat 1.01 mg/dl (0.6-1.4) 04/02/21 Glucose Level 130 mg/dl (70-99) H 04/02/21 TSH 3.940 uIu/ml (0.300-4.500) 04/02/21 Free T4 0.83 ng/dl (0.8-1.6) 04/02/21 HA1c 6.8 % (4.5-5.6) H 04/02/21 Lab Comments: Anemia chronic and stable from previous Testing Laboratory Results 02/19/21(> 60 days by DOS) = PT: 10.3 INR: 1.0 PTT: 24.8 Electrocardiogram Date: 02/19/21 Sinus rhythm at [address] abnormality. Chest X-Ray Date: 02/19/21 No acute pulmonary process. Atherosclerosis.
[~2021-04-25 05:06] MED LIST changes: -ACET-24 PO; -ALLO300T2 PO; -ASPI81TA21 PO; -ATEN-175 PO; -ATOR-24 PO; -CALC600T9 PO; -CHOL2000 PO; -CLC6 PO; -CLOP1TAB15 PO; -CYCL10TA6 PO; -FERR1TAB13 PO; -FINA5TAB PO; -METF850T10 PO; -METHPOW7 PO; +MISSING PHYSICIAN SIGNATURE ON ORDER SCH; -MULT-506 PO; -NRN100 PO; -NTRGSL/4 UT; -NXM/40 PO; -POTA10CA28 PO; -RXC5 PO; -VALS160T60 PO
[2021-04-25] MEDS ORDERED: CeleBREX 200 MG CAP PO SCH (06:00)
[2021-04-25] MEDS ORDERED: ROPIVACAINE 0.5% HCL/PF 150 MG, BUPIVACAINE 0.75% MPF 20 ML, EPINEPHrine 30MG/30ML (OR ... INSTIL SCH (06:00)
[2021-04-25] MEDS ORDERED: TRANEXAMIC ACID 1,000 MG **IV Intra-op IV SCH (06:00)
[2021-04-25] MEDS ORDERED: oxyCODONE HCL 10 MG TABCR (OxyCONTIN) PO SCH (06:00)
[2021-04-25] MEDS ORDERED: LR 500ML BOLUS, THEN 15ML/HR IV SCH (06:00)
[2021-04-25] MEDS ORDERED: ceFAZolin 2000MG 2,000 MG/15 ML SYR IV SCH (06:00)
[2021-04-25] MEDS ORDERED: TRANEXAMIC ACID 1,000 MG **IV Pre-op IV SCH (06:00)
[2021-04-25] MEDS ORDERED: GABAPENTIN 300 MG CAP PO SCH (06:00)
[2021-04-25] MEDS ORDERED: FAMOTIDINE 20 MG TAB PO SCH (06:00)
[2021-04-25] MEDS ORDERED: METOCLOPRAMIDE HCL 10 MG TABLET PO SCH (06:00)
[2021-04-25] MEDS ORDERED: ACETAMINOPHEN 500 MG TAB PO SCH (06:00)
[2021-04-25] MEDS ORDERED: EPINEPHrine INJ 1 MG/ML AMP ONE (06:28)
[2021-04-25] MEDS ORDERED: BUPIVACAINE 0.5 % 5 MG/1 ML PF 10ML VIAL ONE (06:29)
[2021-04-25] MEDS ORDERED: FAMOTIDINE 20 MG TAB ONE (06:29)
[2021-04-25] MEDS ORDERED: ROPIVACAINE 0.5% 5 MG/ML 30 ML VIAL ONE (06:29)
[2021-04-25] MEDS ORDERED: METOCLOPRAMIDE HCL 10 MG TABLET ONE (06:29)
[2021-04-25] MEDS ORDERED: CeleBREX 200 MG CAP ONE (06:29)
[2021-04-25] MEDS ORDERED: oxyCODONE HCL 10 MG TABCR (OxyCONTIN) PO ONE (06:29)
[2021-04-25] MEDS ORDERED: GABAPENTIN 300 MG CAP ONE (06:30)
[2021-04-25] MEDS ORDERED: ceFAZolin 2,000 MG/15 ML IV PUSH IV ONE (06:30)
[2021-04-25] MEDS ORDERED: ACETAMINOPHEN 500 MG TAB ONE (06:30)
[2021-04-25] MEDS ORDERED: PROPOFOL IV EMULSION 10 MG/ML 20 ML VIAL IV ONE ×3 (06:57→07:53)
[2021-04-25] MEDS ORDERED: fentaNYL citrate 100 MCG/2 ML VIAL ONE (06:59)
[2021-04-25] MEDS ORDERED: MIDAZOLAM HCL 1 MG/ML 2ML VIAL ONE (06:59)
[2021-04-25] MEDS ORDERED: TRANEXAMIC ACID / 0.7% NACL 1000MG/100ML BAG IV ONE (07:00)
--- NOTE | 2021-04-25 07:04 | History & Physical Bridge Note ---
Date of Service April 25, 2021 History & Physical Bridge Note I have examined the patient, reviewed the History & Physical and in the interval since the performance of the History & Physical I have noted the following changes of clinical significance: no changes noted
[2021-04-25] MEDS ORDERED: HYDROmorphone INJ 0.5 MG/0.5 ML SYR IV PRN ×2 (07:35→11:58)
[2021-04-25] MEDS ORDERED: ATROPINE SULFATE 0.1 MG/ML 10ML SYR IV PRN (07:35)
[2021-04-25] MEDS ORDERED: fentaNYL citrate 100 MCG/2 ML VIAL IV PRN (07:35)
[2021-04-25] MEDS ORDERED: ePHEDrine sulfate 50 MG/ML AMP IV PRN (07:35)
[2021-04-25] MEDS ORDERED: ONDANSETRON INJ 2 MG/ML 2 ML VIAL IV PRN ×2 (07:35→11:58)
[2021-04-25] MEDS ORDERED: PHENYLEPHRINE 100MCG/ML 5ML SYR ONE (08:03)
--- NOTE | 2021-04-25 08:38 | Operative Report ---
Post Operative Report Pre & Post Diagnosis Operation Date: 04/25/21 07:15 Pre-Op Diagnosis: Unilateral Primary Osteoarthritis, Left Knee Post-Op Diagnosis: Unilateral Primary Osteoarthritis, Left Knee I identified the patient and participated in the time-out.: Yes Procedure Operation Date: 04/25/21 07:15 Actual Procedures p Left Total Knee Arthroplasty(Left) utilizing [employer] journey 2 patient matched total knee arthroplasty size 6 femur 6 tibia 10 polyethylene 35 oval patella- Momo Ivy DO Surgeon Momo Ivy DO Textile Conversion Manager Donte ONOFRE Estimated Blood Loss 5 Findings Consistent with Post-Op Diagnosis Patient presents with severe end-stage DJD 10 degree flexion contracture varus alignment subchondral sclerosis marginal osteophytes subchondral cystic changes with [id number] Specimens Bone and cartilage Drains Medium bore Hemovac Anesthesia Type MAC Spinal Regional Complications none Disposition Accompanied Patient To Recovery: No Disposition: Recovery Room Indications Patient presents with severe end-stage DJD of the left knee no response to conservative management above intraoperative findings were noted patient failed attempts at viscosupplementation corticosteroid injection relative rest activity modification the above intraoperative findings were noted Description of Procedure After proper prepping and draping of the left lower extremity anterior midline incision was made over the region of the extensor extensor mechanism after meticulous hemostasis was obtained and maintained in subcutaneous tissues a medial parapatellar incision was made The patella was subluxed lateralward the medial lateral gutter were cleaned from any hypertrophic synovitis and scar tissue of the distal femoral block was placed and the distal femoral osteotomy cut was made subsequently the chamfers anterior and posterior osteotomy cuts were made utilizing the 4-in-1 block the tibia was subsequently subluxed anteriorward medial and ateral meniscal remnants were excised in their entirety remnants of the anterior and posterior cruciate ligaments were excised in their entirety excellent exposure of the proximal tibia was obtained the tibial osteotomy guide was placed on the proximal tibial osteotomy cut was made once again the knee was irrigated with copious amounts of sterile saline solution the patella was subsequently everted lateralward thickened scar tissue around the patella was removed the patella was subsequently cut utilizing a freehand hussein hnique and was drilled prepared for final preparation and placement of patella socially flexion-extension gaps were checked and the equal and symmetric trials were placed to the appropriate femoral and tibial trials with poly-spacer being placed for equal flexion and extension gaps and full range of motion including extension to 0 and flexion to 140 the trial components after having been taken to recovery range of motion was subsequently removed meticulous hemostasis was obtained and maintained subsequently a knee block injection of joint cocktail including ropivacaine 0.5% 150 mg. Bupivacaine 0.5% epinephrine 1-200,030 mL's toradol 30 mg dexamethasone 4 mg ketamine 10 mg clonidine 100 micrograms normal saline solution 30 mg was infiltrated into the soft tissues of the posterior knee medial lateral gutters and periosteal synovium special attention was paid to protect neurovascular structures at all times subsequently trial components having been removed the knee was irrigated with sterile saline solution. debris was removed the proximal tibia was subsequently prepared and was made ready for the placement of the tibial component tibial component was also cemented and tamped into position the femoral component was subsequently placed and cemented in the position the patellar component was subsequently cemented in position because hemostasis once again obtained and maintained wound having been thoroughly irrigated with debridement and debridement lavage was performed as well as a medial parapatellar incision closed with #1 Vicryl in interrupted fashion subcutaneous was closed with #2 Vicryl skin was closed with skin clips. PA-C was necessary for prepping and drapping as well as wound closure of deep fascia Sub cutaneous tissue and skin and was necessary for the case. A sterile compressive dressing was placed patient was taken to recovery in stable condition of report dictated by Biju I attest to the content of the Intraoperative Record and any orders documented therein. Any exceptions are noted below. I attest to the content of the Intraoperative Record and any orders documented therein. Any exceptions are noted below.
--- NOTE | 2021-04-25 10:34 | XRay Report ---
INDICATION: MN ^Y ^Surgical Post Op . TECHNIQUE: Four views of the left knee were obtained. Comparison: None available at the time of this dictation. FINDINGS: No joint effusion is present. There is no evidence of an acute fracture. The alignment is anatomic. P atient is status post total knee arthroplasty. No perihardware lucency or hardware fracture is seen. Generative changes including osteophyte formation are seen in the knee joint. No soft tissue abnormal ity is identified. IMPRESSION: Status post total knee arthroplasty with hardware in satisfactory position. No acute abnormality. ACT 112: Negative or not required by law. Electronically signed by: Richard Borrero M.D. 04/25/2021 10:33 AM
--- NOTE | 2021-04-25 11:32 | Anesthesiology Progress Note ---
Date of Service April 25, 2021 Anesthesia Post Procedure Vital Signs Vital Signs: Temp Pulse Pulse Resp BP BP Pulse Ox 04/25/21 11:30 73 13 121/78 93 04/25/21 11:15 70 12 122/73 94 04/25/21 11:00 71 12 120/76 94 04/25/21 10:50 69 13 113/76 93 04/25/21 10:40 68 12 120/76 93 04/25/21 10:30 69 14 121/80 94 04/25/21 10:20 70 12 128/73 94 04/25/21 10:10 36.5 C 69 14 109/76 94 04/25/21 10:00 70 14 98/68 L 93 04/25/21 09:50 71 16 99/76 L 94 04/25/21 09:40 72 16 122/69 95 04/25/21 09:30 66 20 97/72 L 98 04/25/21 09:21 37.2 C 68 18 95/64 L 98 04/25/21 05:30 36.7 C 72 20 148/78 H 96 Pain Intensity Left Knee: Pain Intensity: 0 Transfer of Care Handoff Completed per policy Notes Mental Status: alert / awake / arousable and participated in evaluation Patient Amnestic to Procedure: Yes Nausea / Vomiting: adequately controlled Pain: adequately controlled Airway Patency, RR, SpO2: stable & adequate BP & HR: stable & adequate Hydration State: stable & adequate Neuraxial Anesthesia: was administered and sensory block is resolving Anesthetic Complications: no major complications apparent and Pt Satisfied with anesthetic care
[2021-04-25] MEDS ORDERED: NITROGLYCERIN SL 0.4 MG/TAB TAB SL PRN (11:58)
[2021-04-25] MEDS ORDERED: MAGNESIUM HYDROXIDE SUSP 30 ML UDC PO PRN (11:58)
[2021-04-25] MEDS ORDERED: NALOXONE HCL 0.4 MG/1 ML VIAL/CARP IV PRN (11:58)
[2021-04-25] MEDS ORDERED: CYCLOBENZAPRINE HCL 10 MG TAB PO PRN (11:58)
[2021-04-25] MEDS ORDERED: oxyCODONE HCL IR 5 MG TAB (IMMEDIATE RELEASE) PO PRN (11:58)
[2021-04-25] MEDS ORDERED: diazePAM 5 MG TABLET PO PRN (11:58)
[2021-04-25] MEDS ORDERED: bisacodyL 10 MG SUPP PR PRN (11:58)
[2021-04-25] MEDS ORDERED: DICYCLOMINE HCL 10 MG CAP PO PRN (11:58)
[2021-04-25] MEDS ORDERED: PHARMACY GLYCEMIC MGMT CONSULT PRN (11:58)
[2021-04-25] MEDS: SODIUM CHLORIDE 0.9% 1000ML 1,000 ML IV SCH ×2 (12:15→21:53)
[2021-04-25] MEDS ORDERED: INSULIN GLARGINE SOLOSTAR 100 UNITS/ML 3 ML PEN SC ONE (12:30)
[2021-04-25] MEDS ORDERED: CARBOHYDRATES FOR HYPOGLYCEMIA PO PRN (12:45)
[2021-04-25] MEDS ORDERED: GLUCOSE 40% GEL 15 GM TUBE PO PRN (12:45)
[2021-04-25] MEDS ORDERED: DEXTROSE 50% 50 ML SYRINGE IV PRN (12:45)
[2021-04-25] MEDS ORDERED: GLUCAGON FOR INJ 1 MG VIAL IM PRN (12:45)
[2021-04-25] MEDS ORDERED: GLUCOSE 10 TABS/TUBE PO PRN (12:45)
[2021-04-25] MEDS: INSULIN ASPART 100 UNITS/ML 3 ML PEN SC SCH ×3 (13:30→22:59)
[2021-04-25] MEDS: CALCIUM 600MG + VIT D 400 IU TAB PO SCH (13:30)
[2021-04-25] MEDS: allopurinoL 300 MG TAB PO SCH (13:30)
[2021-04-25] MEDS: ACETAMINOPHEN 500 MG TAB PO SCH ×2 (13:33→22:46)
[2021-04-25] MEDS: ceFAZolin 2000MG 2,000 MG/15 ML SYR IV SCH ×2 (14:48→22:46)
[2021-04-25] MEDS: FERROUS GLUCONATE 324 MG TAB PO SCH (17:31)
[2021-04-25] MEDS: DOCUSATE SODIUM 100 MG CAP PO SCH (20:45)
[2021-04-25] MEDS: carvediloL 12.5 MG TAB PO SCH (20:45)
[2021-04-25] MEDS: METHYLCELLULOSE POWDER 454 GM JAR PO SCH (20:48)
[2021-04-25] MEDS: ASPIRIN 81 MG ECTAB PO SCH (20:48)
[2021-04-25] MEDS ORDERED: NON-FORMULARY MEDICATION (Docusate Sodium [Stool Softener] 100 mg Tablet) PO SCH (21:00)
[2021-04-25] MEDS ORDERED: GABAPENTIN 100 MG CAP PO SCH (21:00)
[2021-04-25] MEDS ORDERED: SENNA 8.6 MG TAB PO SCH (21:00)
[2021-04-25] MEDS ORDERED: metFORMIN HCL 850 MG TAB PO SCH (21:00)
[2021-04-25] MEDS ORDERED: ADVANCED PROBIOTIC 1250 MG CAPSULE PO SCH (21:00)
[2021-04-25] MEDS ORDERED: ATORVASTATIN 40 MG TAB PO SCH (21:00)
[2021-04-26] MEDS: ACETAMINOPHEN 500 MG TAB PO SCH ×2 (06:05→12:36)
[2021-04-26] MEDS: carvediloL 12.5 MG TAB PO SCH (08:13)
[2021-04-26] MEDS: FERROUS GLUCONATE 324 MG TAB PO SCH (08:13)
[2021-04-26] MEDS: ASPIRIN 81 MG ECTAB PO SCH (08:13)
[2021-04-26] MEDS: METHYLCELLULOSE POWDER 454 GM JAR PO SCH (08:14)
[2021-04-26] MEDS: DOCUSATE SODIUM 100 MG CAP PO SCH (08:14)
[2021-04-26 08:23] LABS: Hematocrit (blood only) 27.6 % (42-52); Hemoglobin 9.5 g/dL (14.0-18.0); Mean Corpuscular Hemoglobin 32.5 pg (25-34); Mean Corpuscular Hgb Conc 34.4 g/dL (32-36); Mean Corpuscular Volume 94.5 fL (80-100); Mean Platelet Volume 9.7 fL (7.4-10.4); Platelet Count 199 K/uL (130-400); RDW Coefficient of Variation 13.1 % (11.5-14.5); RDW Standard Deviation 45.3 fL (36.4-46.3); Red Blood Count 2.92 M/uL (4.7-6.1); White Blood Count 12.24 K/uL (4.8-10.8)
[2021-04-26] MEDS: INSULIN ASPART 100 UNITS/ML 3 ML PEN SC SCH ×2 (08:49→12:38)
--- NOTE | 2021-04-26 08:51 | Orthopedic Progress Note ---
Date of Service April 26, 2021 Assessment & Plan (1) Arthritis of knee, left: Plan: Postop day 1 status post left total knee arthroplasty. PT/OT protocols. Weightbearing as tolerated. DVT prophylaxis-aspirin p.o. twice daily, Plavix, SCDs, SHIKHA hose Pain management as written. DC planning-patient is planning for home health services upon discharge. Admission and Anticipated Discharge Date Admission Date: April 25, 2021 Subjective Postop day 1 Patient sitting up in bed awake and alert. Getting ready to start his occupational therapy session. No complaints this morning. Pain is controlled. Denies shortness of breath, chest pain, lightheadedness. Physical Exam Physical Exam: Dressings are clean, dry, and intact. Calves are soft nontender. Neurovascular is intact. Toes are mobile. He has good dorsiflexion and plantarflexion of the left foot. Hemovac drainage was 25 cc from the previous shift. Results & Data ([facility]) Vital Signs (Past 12 Hours) Vital Signs Temp Pulse Resp BP Pulse Ox 04/26/21 06:56 36.8 C 69 16 154/71 H 99 04/26/21 02:26 36.7 C 75 16 154/83 H 96 04/25/21 22:32 36.6 C 66 16 156/85 H 96
[2021-04-26 08:59] LABS: BUN Creatinine Ratio 19.7 (10-20); Calcium 9.2 mg/dl (8.5-10.1); Creatinine Clr Calc Pharmacy 80.9 ml/min; Est GFR (African American) 89.4 ml/min; Est GFR (Non-African American) 77.1 ml/min; Potassium 4.2 mmol/L (3.5-5.1)
[2021-04-26] MEDS ORDERED: FINASTERIDE 5 MG TAB PO SCH (09:00)
[2021-04-26] MEDS ORDERED: POTASSIUM CHLORIDE 10 MEQ TABCR PO SCH (09:00)
[2021-04-26] MEDS ORDERED: GLUCOS SUL PO SCH (09:00)
[2021-04-26] MEDS ORDERED: MULTIVITAMIN TAB PO SCH (09:00)
[2021-04-26] MEDS ORDERED: VALSARTAN 80 MG TAB PO SCH (09:00)
[2021-04-26] MEDS ORDERED: hydroCHLOROthiazide 25 MG TAB PO SCH (09:00)
[2021-04-26] MEDS ORDERED: amLODIPine BESYLATE 5 MG TAB PO SCH (09:00)
[2021-04-26] MEDS ORDERED: CLOPIDOGREL BISULFATE 75 MG TAB PO SCH (09:00)
[2021-04-26] MEDS ORDERED: PANTOprazole 40 MG TAB PO SCH (09:00)
[2021-04-26] MEDS ORDERED: [UNRECOGNIZED DRUG - OTHER] PO SCH (09:00)
--- NOTE | 2021-04-26 09:11 | Hospitalist Consultation ---
Date of Consultation April 26, 2021 Assessment & Plan (1) Hx of total knee arthroplasty: Status post left TKA on 04/[address] Ivy Doing well postoperatively Pain control, bowel regimen as per orthopedic surgery Aspirin 81 mg p.o. twice daily, SCDs, SHIKHA garrisone for DVT prophylaxis PT/OT consults-plans for home with home health possibly later today (2) Sleep apnea: He brought in his home CPAP and is wearing it (3) Hypertension: Blood pressures are somewhat elevated this morning, but not overly john rning Continue home HCTZ, carvedilol, valsartan Renal function normal (4) Hyperlipidemia: No acute issues Continue home atorvastatin (5) GERD (gastroesophageal reflux disease): With history of gastric ulcer Caution with increased aspirin use for DVT prophylaxis Continue Protonix and advised to increase to twice daily if starts having any symptoms of heartburn or indigestion after discharge given increasing aspirin dosing (6) CAD (coronary artery disease): With a history of 2 stents LAD in 2003, seen by cardiology prior to surgery and is doing well from cardiac standpoint Continue home aspirin, Plavix, carvedilol, atorvastatin, valsartan (7) Diabetes mellitus, type 2: Hemoglobin A1c 6.8% recently Continue home Metformin, Trulicity on hold Lantus and NovoLog are ordered and it appears that pharmacy is managing her glucose here (8) Chronic anemia: Hemoglobin baseline is 11.7, normocytic Now with acute blood loss anemia down to 9.5 status post surgery Hemodynamically stable He reports he has had an EGD a few years back when he had an ulcer, and also had a colonoscopy about 1 year ago that had a poor prep-he is supposed to return in the near future for repeat colonoscopy Continue home ferrous sulfate Continue follow-up with PCP (9) Gout: No acute issues Continue home allopurinol for prevention (10) BPH (benign prostatic hyperplasia): No acute issues Watch for urinary retention-none so far Continue home finasteride DVT prophylaxis-SCDs, aspirin 81 mg p.o. twice daily Disposition-medically stable for discharge from hospitalist standpoint. Will sign off at this time, please feel free to reconsult if new or acute issues arise. I discussed his care with the orthopedic PA who may discharge him later if drainage from Hemovac is improved History of Present Illness Reason for Consultation: Postop medical management Requesting Physician: Dr. Ivy Attending Physician: Momo Ivy, DO History of Present Illness This patient is a 75-year-old male with a history of CAD with history of 2 stents placed to the LAD in 2003, DM 2 with polyneuropathy, GERD with PUD, HTN, PARAS on CPAP, hyperlipidemia, BPH, chronic anemia, gout, and OA who is here status post left TKA. He is feeling very well. Denies chest pain or shortness of breath, no nausea or vomiting, no abdominal pain. Is tolerating p.o. Denies any lightheadedness. He has his pain control and he is hoping to go home later today. He did use his CPAP last night Allergies Allergy/AdvReac Type Severity Reaction Status Date / Time No Known Drug Allergies Allergy Unknown Verified 04/25/21 05:36 Home Medications Medication Instructions Recorded Confirmed Type allopurinol 300 mg tablet 300 mg PO QDL tab 05/03/19 04/25/21 History aspirin 81 mg tablet,delayed 81 mg PO QAM tab 05/03/19 04/25/21 History release atorvastatin 40 mg tablet 40 mg PO HS tab 05/03/19 04/25/21 History clopidogrel 75 mg tablet 75 mg PO QAM tab 05/03/19 04/25/21 History esomeprazole magnesium 40 mg 40 mg PO QPM #90 cap 05/03/19 04/25/21 History capsule,delayed release finasteride 5 mg tablet 5 mg PO QAM tab 05/03/19 04/25/21 History metformin 850 mg tablet 850 mg PO BID tab 05/03/19 04/25/21 History nitroglycerin 0.4 mg sublingual 0.4 mg SL Q5M PRN tab 05/03/19 04/25/21 History tablet potassium chloride 10 mEq 10 meq PO QAM cap 05/03/19 04/25/21 History capsule,extended release valsartan 160 1 tab PO QAM tab 05/03/19 04/25/21 History mg-hydrochlorothiazide 25 mg tablet coenzyme Q10 100 mg capsule (Co 100 mg PO QAM 06/07/19 04/25/21 History Q-10) colchicine 0.6 mg tablet (Colcrys) 0.6 mg PO DAILY PRN 06/07/19 04/25/21 History cyclobenzaprine 10 mg tablet 10 mg PO HS PRN 06/07/19 04/25/21 History dicyclomine 10 mg capsule 10 mg PO BID PRN 06/07/19 04/25/21 History multivitamin 1 cap PO QAM 06/07/19 04/25/21 History lactobacillus combination no.9 4 4,000 mmu cells PO HS 06/28/19 04/25/21 History billion cell capsule (Adult 50 Plus Probiotic) carvedilol phosphate 40 mg 40 mg PO HS 12/28/19 04/25/21 History capsule,[id number] multiphase (Coreg CR) diclofenac potassium 50 mg tablet 50 mg PO QAM tab 02/20/20 04/25/21 History ferrous sulfate 325 mg (65 mg 325 mg PO HS tab 02/20/20 04/25/21 History iron) tablet calcium carbonate-vitamin D3 600 1 cap PO QDL 02/24/20 04/25/21 History mg calcium-200 unit capsule (Calcium 600 + D(3)) cholecalciferol (vitamin D3) 50 2,000 unit PO QDL 02/24/20 04/25/21 History mcg (2,000 unit) tablet (Vitamin D3) docusate sodium 100 mg tablet 100 mg PO BID 02/24/20 04/25/21 History (Stool Softener) gabapentin 100 mg capsule 100 mg PO HS 02/24/20 04/25/21 History methylcellulose (with sugar) oral 1 tbsp PO BID 02/24/20 04/25/21 History powder (Citrucel (sucrose)) turmeric 500 mg-black pepper 500 mg PO QPM 02/24/20 04/25/21 History extract 3 mg capsule amoxicillin 500 mg capsule 500 mg PO ONCE PRN cap 07/09/20 04/25/21 History diazepam 5 mg tablet 5 mg PO BID PRN 07/09/20 04/25/21 History amlodipine 10 mg tablet 10 mg PO QAM #90 tab 02/13/21 04/25/21 Rx dulaglutide 0.75 mg/0.5 mL 0.75 mg SUBCUT WK 04/17/21 04/25/21 History subcutaneous pen injector (Trulicity) glucos sul [id number] 1 tab PO DAILY 04/19/21 04/25/21 History [Glucosamine Chondroitin] doxycycline hyclate 50 mg tablet 50 mg PO DAILY PRN 04/25/21 04/25/21 History acetaminophen 500 mg tablet 1,000 mg PO Q8 14 Days #84 tab 04/26/21 Rx (Tylenol Extra Strength) aspirin 81 mg tablet,delayed 81 mg PO BID 30 Days #60 tab 04/26/21 Rx release cefadroxil 500 mg capsule 500 mg PO BID #28 cap 04/26/21 Rx oxycodone 5 mg tablet 5 mg PO Q4H PRN #30 tab MDD 6 04/26/21 Rx Patient History Medical History BPH (benign prostatic hyperplasia) CAD (coronary artery disease) stents x2 to LAD (2003), Follows with Dr. Troy Chronic anemia hgb 11s per chart review Chronic back pain Diabetes mellitus, type 2 NIDDM GERD (gastroesophageal reflux disease) controlled Gout History of gastric ulcer several years ago Hyperlipidemia Hypertension Osteoarthritis Sleep apnea CPAP Vertigo Surgical History (Updated 04/26/21 @ 09:19 by Odessa Brown MD) History of bilateral cataract extraction History of cardiac cath stents x2 (2003) History of carpal tunnel release of both wrists History of colonoscopy Colonoscopy (02/29/20): MAC at [facility] History of esophagogastroduodenoscopy (EGD) History of tooth extraction History of total right knee replacement (TKR) Right TKA (09/01/17): SAB at L3/L4 (x1 attempt) + PNB at [facility] Hx of repair of right rotator cuff Hx of total knee arthroplasty Lump or mass in breast Removed Status post medial meniscus repair Right Status post medial meniscus repair of left knee Family History Other Cancer Heart disease Hypertension No family history of adverse response to anesthesia No family history of allergies No family history of bleeding disorder Denies family history of Hearing loss Stroke Asthma Social History Smoking Status: Former smoker Tobacco Type: Cigarettes packs per day: 0.5; Years Smoked: 6; Second Hand Exposure: Yes (father smoked); Do You Dip or Chew Tobacco: No; Tobacco Cessation Education Requested by Patient: No Hx Alcohol Use: Yes Alcohol type: beer and wine Alcohol Intake Frequency Comment: socially Hx Substance Use: No Preferred Language: Italian Communication Ability: Effective Head Filter Press Tender Required: No Beliefs That Will Affect Care: None marital status: Current Living Situation: Spouse and Family Current Living Situation Comment: Lives with and stepson current occupational status: retired current occupation: Retired from [employer] Other Information That Helps Us Care for You: No Feels Safe at Home: Yes Safety Concerns: Feels Safe At This Time Assistive Devices: CPAP and Walker Review of Systems Review of Systems: All systems reviewed & are unremarkable except as noted in HPI & below Physical Exam Constitutional: WD/WN, vitals as above Eyes: + anicteric sclerae Neck: trachea midline, no thyromegaly Respiratory: normal respiratory effort, lungs clear to auscultation Cardiovascular: RRR, no murmur, no edema Chest (Breasts): Chest: normal inspection of chest Gastrointestinal (Abdomen): normal bowel sounds, soft, nontender, no hepatosplenomegaly Musculoskeletal: Extremities: + extremities abnormal to inspection (LLE in Parviz wrap with Hemovac with bloody drainage, distally NVI), no cyanosis and no clubbing Skin: no rashes, warm and dry Neurologic: moves all extremities and awake; no focal motor deficits Psychiatric: A+Ox3, euthymic affect Lymphatic: no lymphedema Results & Data Results & Data ([facility]) Vital Signs (Past 12 Hours) Vital Signs Temp Pulse Resp BP Pulse Ox 04/26/21 06:56 36.8 C 69 16 154/71 H 99 04/26/21 02:26 36.7 C 75 16 154/83 H 96 04/25/21 22:32 36.6 C 66 16 156/85 H 96 Laboratory Results 04/26/21 08:02 04/26/21 08:02 PG Care Time/CCT Total # of Minutes Spent Total Time Spent with Patient: Total time spent is greater than 50% in coordination of care (as documented) at patient's floor/unit and/or counseling patient: Coding Level of Care Code 61991 Inpt Consult Level 3 Diagnoses BPH (benign prostatic hyperplasia) N40.0 Sleep apnea G47.30 Hypertension I10 Hyperlipidemia E78.5 GERD (gastroesophageal reflux disease) K21.9 CAD (coronary artery disease) I25.10 Diabetes mellitus, type 2 E11.9 Chronic anemia D64.9 Gout M10.9 Hx of total knee arthroplasty Z96.659
--- NOTE | 2021-04-26 10:17 | Pharmacy Report ---
Pharmacy Glycemic Short Note 2 - Date of Service April 26, 2021 - Glycemic Short BSG Results (Last 24 hours): 04/25/21 04/25/21 04/25/21 12:18 17:03 20:33 Glucose POC Glucose 141 H 128 H 141 H 04/26/21 04/26/21 08:02 08:29 Glucose 117 H POC Glucose 113 H OUTPATIENT ANTIDIABETIC REGIMEN: * Metformin 850mg PO BIDM * Trulicity 0.75mg SQ weekly on Fridays * A1c = 6.8% on 04/02/21 ASSESSMENT: * 75yo T2DM male with well controlled DM as an outpatient. * POD #0: held outpatient oral antidiabetic agents and gave a weight based dose of Lantus + NovoLog bolus insulin per CF/CR * All BSGs < 150 mg/dl which is excellent control * POD #1: Will loosen CF/CR parameters and add back outpatient metformin since patient is tolerating PO & SCR WNL. * Goal is to maintain BSGs <180 mg/dl (ideally <150 mg/dl) to prevent post-op infectious complications. PLAN FOR INPATIENT GLYCEMIC CONTROL: * Hold outpatient oral diabetes medications POD#0. Resume the evening of POD#1 * Basal insulin * Lantus 25 units SQ x 1 dose on POD#0 * DC POD#1 * Bolus insulin * NovoLog per scale ACHS or Q6hrs while NPO * Goal Range: Low 110 mg/dL - High 140 mg/dL * Correction Factor: 25 mg/dL/unit * Nutritional / Prandial insulin per carb ratio of 1 unit per 8 grams CHO consumed * Oral Agents * Resume metformin 850mg PO BIDM POD#1 evening PLAN FOR DISCHARGE: * No changes needed at DC
[2021-04-26] MEDS ORDERED: CHOLECALCIFEROL 1,000 UNITS 25 MCG TAB PO SCH (12:30)
[2021-04-26] MEDS: CALCIUM 600MG + VIT D 400 IU TAB PO SCH (12:36)
[2021-04-26] MEDS: allopurinoL 300 MG TAB PO SCH (12:36)
[2021-04-26] MEDS ORDERED: metFORMIN HCL 850 MG TAB PO SCH (17:00)
--- NOTE | 2021-04-30 13:08 | Discharge Summary ---
Date of Service April 30, 2021 Admission HPI Per Admitting Provider Fredy is a 75 year old male who complains of left knee pain, presents for pre- op evaluation prior to a left total knee replacement by Dr Ivy at [facility]. he complains of pain, decreased range of motion, instability and stiffness in his left knee. Currently he states that the symptoms are moderate-severe and rated 6/10. The pain is described as aching, sharp and throbbing. His symptoms are aggravated by ascending stairs, daily activities, first steps while awake walking. His NSAID use is limited due to Plavix and ASA use. He has been treated with previous cortisone and visco injections in the past without much relief. he has undergone prior left knee scope approximately 10 years ago as well. Admission Exam Per Admitting Provider Physical Exam: HT: 71 IN WT: 230 LB BP: 148/82 Constitutional: WD/WN, vitals as above no acute distress Respiratory: normal respiratory effort, lungs clear to auscultation no respiratory distress, no labored breathing and does not use accessory muscles Cardiovascular: RRR, no murmur, no edema Gastrointestinal (Abdomen): normal bowel sounds, soft, nontender, no hepatosplenomegaly Musculoskeletal: Knee: + knee abnormal to inspection (LEFT KNEE-), + effusion (+1 effusion), + surgical incision (well healed portals), + limited ROM of knee (ROM 0/3/110), + knee ROM with crepitation, + joint line tenderness (medial joint line) and + Elle's sign positive; no deformity, no skin erythema, no ecchymosis, no valgus laxity, no varus laxity, anterior drawer test negative, Noe's sign negative and pivot shift test negative Principal Diagnosis Osteoarthritis left knee Discharge Data Allergies Allergy/AdvReac Type Severity Reaction Status Date / Time No Known Drug Allergies Allergy Unknown Verified 04/25/21 05:36 Consultations 04/25/21 11:58 Consult Hospitalist Routine Procedures Performed Operation Date: 04/25/21 07:15 Actual Procedures p Left Total Knee Arthroplasty(Left) - Momo Ivy DO Ordered Studies 04/25/21 05:00 US - OR guided needle placemen Routine Hospital Course (1) Arthritis of knee, left: Addendum April 26, 2021 11:43 Patient progressing well with his physical therapy. Vital signs remaining stable. I have been in touch with the hospitalist service who feel he is medically stable. Plan for discharge to home today. Addendum Signed By:<Electronically signed by Donte Renteria PA-C>04/26/21 1144Addendum Cosigned By:<Electronically signed by Momo Ivy DO>04/30/21 0827Created: 04/26/2106/06/1144 Date of Service April 26, 2021 Assessment & Plan (1) Arthritis of knee, left: Plan: Postop day 1 status post left total knee arthroplasty. PT/OT protocols. Weightbearing as tolerated. DVT prophylaxis-aspirin p.o. twice daily, Plavix, SCDs, SHIKHA hose Pain management as written. DC planning-patient is planning for home health services upon discharge. Admission and Anticipated Discharge Date Admission Date: April 25, 2021 Subjective Postop day 1 Patient sitting up in bed awake and alert. Getting ready to start his occupational therapy session. No complaints this morning. Pain is controlled. Denies shortness of breath, chest pain, lightheadedness. Physical Exam Physical Exam: Dressings are clean, dry, and intact. Calves are soft nontender. Neurovascular is intact. Toes are mobile. He has good dorsiflexion and plantarflexion of the left foot. Hemovac drainage was 25 cc from the previous shift. Results & Data ([facility]) Vital Signs (Past 12 Hours) Vital Signs Temp Pulse Resp BP Pulse Ox 04/26/21 06:56 36.8 C 69 16 154/71 H 99 04/26/21 02:26 36.7 C 75 16 154/83 H 96 04/25/21 22:32 36.6 C 66 16 156/85 H 96 Hgb 9.5 Total Time Total Time Spent Total Time Spent (In Minutes): 5 Discharge Plan Discharge Items Patient Disposition: Home - Home Health Services Reason For Visit: Unilateral Primary Osteoarthritis, Left Knee Discharge Diagnosis: Left knee osteoarthritis Activity: Per Instructions section Weightbearing: Left weightbearing Weightbearing Comment: As tolerated with walker Non-emergency contact: Surgeon Call non-emergency contact if: your pain is not controlled, your temperature is above 101.5, your wound has increased redness and your wound has increased drainage Follow-up/Referrals: Josue Patel MD [Primary Care Provider] - Diet: Carb Consistent or DM2 Addtl Attending Provider Instructions: ACTIVITY RECOMMENDATIONS: SELF CARE INSTRUCTIONS AFTER TOTAL KNEE REPLACEMENT A. You may need to continue a physical therapy program after discharge from the hospital. There are several options available to you. Your doctor will assist you in selecting the best one for you. 1. An out-patient facility 2 to 3 times a week for therapy or home therapy. 2. Continue working on all exercises taught to you in the hospital. Your goals should be to increase bending of your knee to 90 degrees and beyond and to fully straighten your knee. B. You may progress at your own pace from walking with a walker or crutches to a cane; then to no assistive devices. C. Make walking a part of your daily routine. Be up as much as comfortable with rest periods throughout the day. Rest with leg elevation is very important. Use the ice wrap frequently for the first 3-4 weeks. D. There are no restrictions on activities. You may ride in a car, shop, participate in supervisor sewing room and all social activities. E. Wear the long elastic stockings (SHIKHA hose) 20 hours a day for 2 weeks after surgery. They can be removed several times a day for laundering and for a bath. F. You may shower, no tub baths until cleared by your doctor. SPECIAL CARE INSTRUCTIONS: VERY IMPORTANT TO READ AND REVIEW A. There are a few signs you need to watch for after you are home. Call [facility] if you notice any of the followin. Increased severe knee pain. Some pain is expected especially when you exercise. 2. Increased swelling in your leg or knee; pain or swelling of the calf muscle in either lower leg. 3. Any fluid drainage from the incision. 4. Shortness of breath or chest pain. B. Please call [facility] at if you have any concerns or questions about your operation or recovery. The doctor or his nurse will return your call promptly. C. You must take antibiotics before dental work, bladder, bowel or other surgery. Your doctor will provide you with a permanent care to carry describing this precaution. IMPORTANT: * REMEMBER TO TAKE ASPIRIN, 81 MG, TWICE DAILY FOR 4 WEEKS UNLESS OTHERWISE DIRECTED. THIS IS YOUR BLOOD THINNER. * HIGH RISK PATIENTS MAY BE PRESCRIBED A STRONGER BLOOD THINNER. THIS WILL BE PROVIDED AT DISCHARGE. * CALL IF INCREASED PAIN, REDNESS, DRAINAGE OR FEVER GREATER THAT 101. * WEAR SHIKHA HOSE 20 HOURS PER DAY FOR 2 WEEKS. * DERMABOND Prineo- This is a mesh tape dressing that is covered with glue. It should remain in place until the incision is properly healed, usually 10-14 days. This dressing is designed to naturally slough off. You may trim the excess mesh tape as it peels off. Incision may be briefly wet in a shower. Dry immediately by blotting with a clean, dry towel. Do not bath or swim until instructed by your doctor. Do not scratch, rub, or pick at the dressing. Do not apply any topical ointments or lotions until dressing is completely removed and/or instructed by your doctor. There may be a small piece of suture material at one end of your incision. Do not pull or trim this. If it is bothersome or catching on clothing, you may cover it with a band-aid. . FOLLOW UP VISIT: If appointment is not already scheduled: Please call [facility] to make a follow-up appointment for 2 weeks after your surgery at . Pending Studies at Discharge: No Stand-Alone Forms: My [facility] [employer], Opioid Pain Management, Smoking Cessation Medications and DC Order Prescriptions: New aspirin 81 mg Tablet,Delayed Release (Dr/Ec) 81 mg PO BID 30 Days Qty: 60 RF: 0 acetaminophen [Tylenol Extra Strength] 500 mg Tablet 1,000 mg PO Q8 14 Days Qty: 84 RF: 0 cefadroxil 500 mg capsule 500 mg PO BID Qty: 28 RF: 1 oxycodone 5 mg Tablet 5 mg PO Q4H MDD 6 PRN (Reason: pain) Qty: 30 RF: 0 Continued amlodipine 10 mg tablet 10 mg PO QAM Qty: 90 RF: 3 Adult 50 Plus Probiotic 4 billion cell capsule 4,000 mmu cells PO HS RF: 0 carvedilol phosphate [Coreg CR] 40 mg capsule, ER multiphase 24 hr 40 mg PO HS RF: 0 glucos sul [id number] [Glucosamine Chondroitin] 1 tab PO DAILY RF: 0 esomeprazole magnesium 40 mg capsule,delayed release(DR/EC) 40 mg PO QPM Qty: 90 RF: 0 metformin 850 mg tablet 850 mg PO BID RF: 0 valsartan-hydrochlorothiazide 160-25 mg tablet 1 tab PO QAM RF: 0 allopurinol 300 mg tablet 300 mg PO QDL RF: 0 finasteride 5 mg tablet 5 mg PO QAM RF: 0 atorvastatin 40 mg tablet 40 mg PO HS RF: 0 nitroglycerin 0.4 mg tablet, sublingual 0.4 mg SL Q5M PRN (Reason: chest pain) RF: 0 clopidogrel 75 mg tablet 75 mg PO QAM RF: 0 potassium chloride 10 mEq capsule, extended release 10 meq PO QAM RF: 0 multivitamin capsule 1 cap PO QAM RF: 0 coenzyme Q10 [Co Q-10] 100 mg capsule 100 mg PO QAM RF: 0 colchicine [Colcrys] 0.6 mg tablet 0.6 mg PO DAILY PRN (Reason: gout flare up) RF: 0 cyclobenzaprine 10 mg tablet 10 mg PO HS PRN (Reason: Muscle Spasm) RF: 0 dicyclomine 10 mg capsule 10 mg PO BID PRN (Reason: Abdominal Discomfort) RF: 0 ferrous sulfate 325 mg (65 mg iron) tablet 325 mg PO HS RF: 0 diazepam 5 mg tablet 5 mg PO BID PRN (Reason: Vertigo) RF: 0 amoxicillin 500 mg capsule 500 mg PO ONCE PRN (Reason: dental) RF: 0 Calcium 600 + D(3) 600 mg calcium- 200 unit Capsule 1 cap PO QDL RF: 0 gabapentin 100 mg Capsule 100 mg PO HS RF: 0 docusate sodium [Stool Softener] 100 mg Tablet 100 mg PO BID RF: 0 cholecalciferol (vitamin D3) [Vitamin D3] 50 mcg (2,000 unit) Tablet 2,000 unit PO QDL RF: 0 Citrucel (sucrose) Powder 1 tbsp PO BID RF: 0 Trulicity 0.75 mg/0.5 mL Pen Injector 0.75 mg SUBCUT WK RF: 0 doxycycline hyclate 50 mg Tablet 50 mg PO DAILY PRN (Reason: Rash) RF: 0 Discontinued aspirin 81 mg tablet,delayed release (DR/EC) 81 mg PO QAM RF: 0 diclofenac potassium 50 mg tablet 50 mg PO QAM RF: 0 turmeric-turmeric ext-pepper 500-3 mg Capsule 500 mg PO QPM RF: 0 Discharge Orders: Discharge Order (Routine); Ordered 04/26/21 Ordered By: Donte Smith/Other Patient Handouts: DVT Post Op Prevention Admission Data Admit Date/Time: 04/25/21 09:31 Attending Provider: Momo Ivy Admit Provider: Momo Ivy Primary Care Provider: Josue Patel Other Providers: Odessa Brown ; [facility] Other Interventions: Discharge Summary Assessment (RN) Last Done: 04/26/21 13:21
== END 2021-04-26 14:49 | disposition home health service (06) | DRG 470 ==
LOC: 3E 05:06 → ASU 05:06 → OBSVTOIN 09:31
DX: Z79.82 Long term (current) use of aspirin; Z79.84 Long term (current) use of oral hypoglycemic drugs; Z82.49 Family history of ischemic heart disease and other diseases of the circulatory system; I10 Essential (primary) hypertension; Z79.02 Long term (current) use of antithrombotics/antiplatelets; D62 Acute posthemorrhagic anemia; D64.9 Anemia, unspecified; Z87.11 Personal history of peptic ulcer disease; K21.9 Gastro-esophageal reflux disease without esophagitis; N40.0 Benign prostatic hyperplasia without lower urinary tract symptoms; Z95.5 Presence of coronary angioplasty implant and graft; E78.5 Hyperlipidemia, unspecified; M17.12 Unilateral primary osteoarthritis, left knee; I25.10 Atherosclerotic heart disease of native coronary artery without angina pectoris; E11.9 Type 2 diabetes mellitus without complications; Z79.899 Other long term (current) drug therapy; M10.9 Gout, unspecified; Z79.1 Long term (current) use of non-steroidal anti-inflammatories (NSAID); Z96.651 Presence of right artificial knee joint; Z20.822 Contact with and (suspected) exposure to COVID-19; G47.33 Obstructive sleep apnea (adult) (pediatric); Z87.891 Personal history of nicotine dependence; Z77.22 Contact with and (suspected) exposure to environmental tobacco smoke (acute) (chronic)